=== PATIENT | female | born 1960 | race Caucasian/White ===

== ENCOUNTER 2018-03-29 10:52 | Inpatient (IN) ==
[~2018-03-29 10:52] MED LIST: Vancomycin 1,000 MG, Sodium Chloride IRRigation 1,000 ML IR ONE
--- NOTE | 2018-03-29 11:16 | History & Physical Report ---
Date of Encounter: 03/29/18 Time of Encounter: 11:10 24 Hour HP Update - Instructions Instructions: If the History and Physical is less than 30 days old and was completed prior to A.M. admission and or procedure and has NOT been updated on calendar day of procedure please complete this update prior to performing procedure. - Update Patient reports changes in Medical Condition: No Changes in examination, assessment, or condition: No Changes in Medication: No Preop tests/diagnostics Reviewed: Yes Surgery Remains Indicated: Yes Consent for Planned Operative Procedure(s) Verified: Yes - Pre-Operative Checklist Preoperative Checklist Indicated: Yes Prophylactic Antibiotic Ordered: Yes (Vancomycin due to risk of MRSA) Home Medications Include Beta Britney: Yes Beta Britney Taken Today (Day of Surgery): Yes Beta Britney Taken Yesterday (Day Prior to Surgery): Yes Is VTE Prophylaxis Indicated?: Yes
--- NOTE | 2018-03-29 11:42 | Anesthesia Evaluation PreOp ---
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 (received TPA at that time with partial motor function recovery)), Other (anxiety) Other Medical History: Diabetes Type II (not taking insulin because she has trouble with injections; on multiple medications) Anesthesia History: No Prior Anesthetic Complications Alcohol Use: none Drug use: none Medications and Allergies Aspirin Enteric Coated [Aspirin EC] 81 mg PO QAM 02/14/15 [History] Atorvastatin [Lipitor] 40 mg PO QAM 02/14/15 [History] Carvedilol [Coreg] 25 mg PO BID 02/14/15 [History] FLUoxetine HCl [Prozac] 10 mg PO QAM 02/14/15 [History] Lisinopril [Zestril] 20 mg PO BID 02/14/15 [History] Nitroglycerin [Nitrostat] 0.4 mg SL AD PRN 02/14/15 [History] Pioglitazone HCl [Actos] 30 mg PO QAM 02/14/15 [History] Amlodipine [Norvasc] 2.5 mg PO DAILY 30 Days tablet 02/15/15 [Rx] Aspirin 81 mg PO DAILY tab.chew 02/15/15 [Rx] Atorvastatin [Lipitor] 40 mg PO QAM tablet 02/15/15 [Rx] Isosorbide MONOnitrate (24 HR) [Imdur] 120 mg PO QAM #30 tab.er.24h 02/15/15 [Rx] Ranolazine [Ranexa] 1,000 mg PO BID #60 tab.er.12h 02/15/15 [Rx] Ticagrelor [Brilinta] 90 mg PO BID #60 tablet 02/15/15 [Rx] metFORMIN [Glucophage] 1,000 mg PO BID #0 02/15/15 [Rx] Cyclobenzaprine [Flexeril] 10 mg PO HS #15 tablet 07/14/17 [Rx] Ibuprofen [Motrin] 600 mg PO Q6HR PRN #30 tab 07/14/17 [Rx] Allergy/AdvReac Type Severity Reaction Status Date / Time Penicillins Allergy Anaphylaxis Verified 02/14/15 12:13 - Meds/Allergy Pre-op Review Medications Reviewed: Yes Allergies Reviewed: Yes Beta Blockers on Current Med List: Yes (coreg) If Beta Blockers taken, Date/Time (Last Dose taken): not taken recently Anesthesia Results - Labs Laboratory Tests 03/23/18 03/23/18 03/23/18 10:59 10:59 10:59 WBC 6.3 Hgb 15.6 H Hct 47.8 H Plt Count 206 PT 11.3 INR 1.0 APTT 31.5 Sodium 136 Potassium 3.9 Chloride 103 Carbon Dioxide 29 BUN 12 Creatinine 0.62 Est GFR ( Amer) > 60 Est GFR (Non-Af Amer) > 60 BUN/Creatinine Ratio 19 Glucose 223 H Calculated Osmolality 289 Calcium 9.4 - Imaging EKG: report reviewed, image reviewed (SR) Additional studies: 2014 Cardiac cath: Indications: Unstable Angina Impressions: There is severe two vessel coronary artery disease; diabetic coronary artery disease with diffusely diseased distal vessels The left ventricle is normal and has normal contractility EF 65% There is a previous stent in Proximal LAD with mild in-stent stenosis that did not require intervention Patient had PTCA in the OM. Recommendations: Optimal medical therapy of patient's disease. Aggressive risk factor modification. Advance antianginal therapy. 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
[2018-03-29] MEDS ORDERED: Ringers Solution, Lactated 1,000 ML IVC SCH (11:45)
[2018-03-29] MEDS ORDERED: Ondansetron 4 MG/2 ML VIAL ONE (12:03)
[2018-03-29] MEDS ORDERED: Lidocaine -MPF 4% 5 ML AMPUL ONE ×2 (12:03→15:03)
[2018-03-29] MEDS ORDERED: *HR* Rocuronium Bromide 50 MG/5 ML VIAL ONE (12:03)
[2018-03-29] MEDS ORDERED: Neostigmine Methylsulfate 3 MG/3 ML SYRINGE ONE (12:03)
[2018-03-29] MEDS ORDERED: Lidocaine -MPF 2% 2 ML VIAL ONE (12:03)
[2018-03-29] MEDS ORDERED: Dexamethasone 4 MG/ML VIAL ONE (12:03)
[2018-03-29] MEDS ORDERED: *HR* FentaNYL (PF) 100 MCG/2 ML VIAL ONE ×2 (12:03→12:05)
[2018-03-29] MEDS ORDERED: *HR* Propofol 200 MG/20 ML VIAL IVP ONE (12:04)
[2018-03-29] MEDS ORDERED: *HR* Midazolam HCl 2 MG/2 ML VIAL ONE ×3 (12:04→12:14)
[2018-03-29] MEDS ORDERED: Lidocaine -MPF 1% 5 ML AMPUL ONE (12:06)
[2018-03-29] MEDS ORDERED: Heparin 1,000 UNITS/500 mL 500 ML ONE (12:09)
--- NOTE | 2018-03-29 12:35 | Anesthesia Procedures ---
Date of Encounter: 03/29/18 Time of Encounter: 12:20 Procedures: Anesthesia - Arterial Line Consent obtained: written consent Time out performed: Yes Sedation: Versed (mg): 3 Sedation: Fentanyl (mcg): 100 Supplemental Oxygen via Nasal Cannula (L/min): 2 Local Anesthetic: Lidocaine 1% Amount of Anesthetic used (mls): 3 Size (Gauge): 20 Length (inches): 1 3/4 Technique Used: sterile prep, guide wire technique Post-Procedure: line taped into place, dry sterile dressing placed Patient tolerated procedure: well, no complications Complications: none Site: Radial R
[2018-03-29] MEDS ORDERED: Protamine Sulfate 50 MG/5 ML VIAL IVP ONE (12:37)
[2018-03-29] MEDS ORDERED: Bupivacaine-MPF 0.25% 10 ML VIAL ONE (12:38)
[2018-03-29] MEDS ORDERED: Heparin 1,000 UNITS/500 mL 1,500 ML ONE (12:38)
[2018-03-29] MEDS ORDERED: *HR* Remifentanil 2 MG VIAL IVP ONE (12:39)
[2018-03-29] MEDS ORDERED: *HR* Phenylephrine 10 MG/ML VIAL ONE (12:39)
[2018-03-29] MEDS ORDERED: *HR* PHENYLEPHRINE 1,000 MCG/10 ML SYRINGE IVP ONE (13:38)
[2018-03-29] MEDS ORDERED: *HR* Promethazine 25 MG/ML VIAL IVP PRN (13:54)
[2018-03-29] MEDS ORDERED: *HR* Labetalol 20 MG/4 ML SYRINGE IVP PRN ×2 (13:54→17:59)
[2018-03-29] MEDS ORDERED: *HR* Succinylcholine 200 MG/10 ML VIAL IVP ONE (15:03)
--- NOTE | 2018-03-29 16:45 | Operative Note ---
Date of procedure: 03/29/18 Pre-op diagnosis: 80-99% left internal carotid artery stenosis Post-op diagnosis: same Procedure: Left carotid endarterectomy with Hemashield patch angioplasty Complications: None Anesthesia: GETA Surgeon: Roger Quinteros Was there an dental chairside assistant present: No Estimated blood loss (cc): 50 Specimen: Left carotid plaque Condition: stable Disposition: PACU Procedure in Detail: Indications: The patient is a 57-year-old mwruyo-coty-hve female with a history of carotid stenosis, hypertension, hyperlipidemia, diabetes and coronary artery disease. The patient was found have an 80-99% left internal carotid artery stenosis by CT angiogram. The patient is a history of a transient ischemic attack. A left carotid endarterectomy was recommended to reduce her risk of cerebrovascular accidents. Procedure: The patient was identified in the preoperative area. The risks, benefits, and alternatives of the procedure were discussed and all questions were answered. The patient was then taken to the operating room and placed in supine position on the operating table. After the induction of general endotracheal anesthesia, the patient was cleaned and draped in normal sterile fashion. A longitudinal incision was made anterior to the left sternocleidomastoid muscle. Hemostasis was obtained via electrocautery. Through a process of blunt, sharp, and electrocautery dissection, the platysma was incised with electrocautery. The jugular vein was identified. The facial vein was dissected proximally. The vesel was then ligtated with 2-0 silk suture and divided. The jugular vein was then retracted to expose the carotid bifurcation. The patient received 2000 units of heparin intravenously at this time. Proximal dissection of the common and external carotid arteries were performed circumferentially. Dissection of the internal carotid was performed circumferentially. Vessels loops were passed around the internal and external carotid and an umbilical tape was passed from the common carotid artery. The patient received additional 3000 units of heparin intravenously. Additional anticoagulation was given during procedure to maintain adequate anticoagulation. After waiting adequate time for the heparin to circulate, the vessels were occluded and a longitudinal arteriotomy was made into the common carotid artery and extended into the internal carotid beyond the plaque. The plaque was long, ulcerated and heavily calcified. Vigorous pulsatile retrograde flow was noted from the internal carotid artery upon release of the vessel loop. Rapid pulsatile retrograde flow was noted from the internal carotid artery. This was consistent with significant retrograde perfusion. Given this finding, a shunt was not placed. A dental [place] was used to perform a standard endarterectomy. Proximal and distal endpoints were inspected an no elevated flaps were noted. A Hemashield patch was cut to fit the defect and sutured in place with running 6-0 Prolene. Prior to completing the closure, each vessel was flushed and then reoccluded. Heparinized saline was infused into the lumen. The patch was completed. Flow was restored in the external carotid artery, followed the common carotid artery, lastly the internal carotid artery was opened. A low resistance arterialized signal was present within the internal carotid artery beyond the patch. Thrombin and Gelfoam were used to aid in hemostasis. Meticulous hemostasis was obtained throughout the wound with electrocautery. Platelet rich and platelet poor plasma were infused into the wounds. The sternocleidomastoid was reapproximated with interrupted 3-0 Vicryl. Platelet rich and platelet poor plasma were infused into the wound. A TLS drain was brought through a separate stab incision and sutured in place with 0 silk suture. The platysma was reapproximated with running 3-0 Vicryl. Local anesthetic was infused in the skin. A 3-0 Monocryl was used to reapproximate the skin. A sterile dressing was applied. The patient was extubated, taken to the recovery room in stable condition.
[2018-03-29] MEDS: *HR* HYDROmorphone (PF) 1 MG/ML SYRINGE IVP PRN ×2 (16:52→17:21)
--- NOTE | 2018-03-29 17:50 | Anesthesia Evaluation Post Op ---
Date of Encounter: 03/29/18 Time of Encounter: 17:49 - Vital Signs Vital Signs: Last Vital Signs Temp 99.7 F H 03/29/18 17:24 Pulse 68 03/29/18 17:34 Resp 13 03/29/18 17:34 BP 101/51 03/29/18 17:34 Pulse Ox 97 03/29/18 17:34 - Lungs Lungs: Clear Ascult./Percussion - Airway Airway: Non-obstructed - Cardiovascular Regular Rate - Mental Status Mental Status: Alert & Oriented, Answers Appropriately - Pain Pain Scale: 2 - Nausea Vomiting Nausea Vomiting: Not Present - Hydration Hydration: NPO, Simpson catheter - Discharge PostOp Status: Transfer Patient to floor
[2018-03-29] MEDS ORDERED: *HR* OxyCODONE Immed Rel 5 MG TABLET PO PRN (17:59)
[2018-03-29] MEDS ORDERED: OXYCODONE Oral CONC 10 MG/0.5 ML ORAL.SYG SL PRN ×2 (17:59)
[2018-03-29] MEDS ORDERED: D5% in Water 1,000 ML IVC PRN (17:59)
[2018-03-29] MEDS ORDERED: *HR* Dextrose 50 % in Water (Syg) 50 ML SYRINGE IVP PRN (17:59)
[2018-03-29] MEDS ORDERED: Famotidine 20 MG TABLET PO PRN (17:59)
[2018-03-29] MEDS ORDERED: 0.9 % Sodium Chloride 1,000 ML IVC SCH (17:59)
[2018-03-29] MEDS ORDERED: Naloxone 0.4 MG/ML INJ IVP PRN (17:59)
[2018-03-29] MEDS ORDERED: Nitroglycerin 0.4 MG TAB.SUBL SL PRN (17:59)
[2018-03-29] MEDS ORDERED: *HR* HYDROcodone/Acet 5/325 mg TABLET PO PRN (17:59)
[2018-03-29] MEDS ORDERED: Acetaminophen 325 MG TABLET PO PRN (17:59)
[2018-03-29] MEDS ORDERED: Dextrose Gel 15 GM/37.5 ML TUBE PO PRN ×2 (17:59)
[2018-03-29] MEDS ORDERED: Ondansetron 4 MG/2 ML VIAL IVP PRN (17:59)
[2018-03-29] MEDS: *HR* Metoprolol 5 MG/5 ML VIAL IVP SCH ×2 (19:42→23:59)
[2018-03-29] MEDS: Pregabalin 50 MG CAPSULE PO SCH (20:57)
[2018-03-29] MEDS: Ranolazine 500 MG TAB.ER.12H PO SCH (20:57)
[2018-03-29] MEDS ORDERED: Insulin LISPRO 300 UNITS/3 ML VIAL SQ SCH (21:00)
[2018-03-29] MEDS ORDERED: Canagliflozin [Invokana] 300 MG PO SCH (21:00)
[2018-03-29] MEDS ORDERED: *HR* LORazepam 2 MG/ML VIAL IVP PRN (22:09)
[2018-03-29] MEDS ORDERED: Vancomycin 0 MG in D5% in Water 250 ML IVPB ONE (23:30)
[2018-03-30] MEDS ORDERED: *HR* Heparin 5,000 UNIT/ML VIAL SQ SCH ×2 (06:00)
[2018-03-30] MEDS: *HR* Metoprolol 5 MG/5 ML VIAL IVP SCH (06:14)
[2018-03-30 07:08] VITALS: BP 107/56
[2018-03-30] MEDS ORDERED: Insulin LISPRO 300 UNITS/3 ML VIAL SQ SCH (07:30)
--- NOTE | 2018-03-30 07:55 | Discharge Summary ---
Orders not resulted at time of discharge: Pending orders 03/29/18 16:27 Surgical Pathology [PTH] Routine Date of Encounter: 03/30/18 Time of Encounter: 07:45 - Discharge Diagnosis (1) Carotid stenosis, left Priority: Primary Status: Acute Comments: The patient is postoperative day #1 after left carotid artery. She is tolerating her diet well. Her incision is healing. She has no hematoma. She has no neurologic deficits. She will be discharged today. (2) Diabetes Status: Acute (3) Hypertension Status: Acute - Hospital Course Hospital course: Ms. Guadarrama is a 57 year old female - Time Spent with Patient Total time spent providing and/or coordinating discharge services: - Discharge Medications Prescriptions: HYDROcodone/Acet 5/325 mg [[place] 5-325 mg] 1 tab PO Q6HR PRN 3 Days #12 tablet PRN Reason: Postoperative pain Home Medications: Amlodipine Besylate 10 mg PO DAILY 03/29/18 [History] Atorvastatin Calcium [Lipitor] 80 mg PO DAILY 03/29/18 [History] Canagliflozin [Invokana] 300 mg PO HS 03/29/18 [History] Carvedilol [Coreg] 25 mg PO BID 03/29/18 [History] FLUoxetine HCl [Prozac] 20 mg PO DAILY 03/29/18 [History] Famotidine [Pepcid] 20 mg PO BID PRN 03/29/18 [History] Hydralazine HCl 50 mg PO BID 03/29/18 [History] Isosorbide MONOnitrate [Isosorbide Mononitrate ER] 120 mg PO DAILY 03/29/18 [History] Linagliptin [Tradjenta] 5 mg PO DAILY 03/29/18 [History] Lisinopril [Zestril] 20 mg PO DAILY 03/29/18 [History] Metformin HCl [Glucophage] 1,000 mg PO BID 03/29/18 [History] Nitroglycerin 0.4 mg SL Q5M PRN MDD [id number] CALL 911 03/29/18 [History] Omeprazole [PriLOSEC] 40 mg PO DAILY 03/29/18 [History] Pioglitazone HCl [Actos] 30 mg PO DAILY 03/29/18 [History] Pregabalin [Lyrica] 100 mg PO TID 03/29/18 [History] Ranolazine [Ranexa] 1,000 mg PO BID 03/29/18 [History] Ticagrelor [Brilinta] 90 mg PO BID 03/29/18 [History] cloNIDine HCl [CloNIDine HCl] 0.1 mg PO BID 03/29/18 [History] HYDROcodone/Acet 5/325 mg [[place] 5-325 mg] 1 tab PO Q6HR PRN 3 Days #12 tablet 03/30/18 [Rx] Allergies/Adverse Reactions: Allergy/AdvReac Type Severity Reaction Status Date / Time Penicillins Allergy Anaphylaxis Verified 03/29/18 12:50 Date of admission: 03/29/18 17:50 Primary care physician: Liv Martinez MD Exam Vital Signs, Last 4 Hours Temp Pulse Resp BP Pulse Ox 03/30/18 07:04 97.6 F 54 18 107/56 97 General: Present: Conversant HEENT: Present: Trachea midline, Pupils equal Neck: Present: Other (Incision clean, dry and intact without erythema or drainage. No hematoma. Expected ecchymosis.). Absent: Tracheal deviation Cardiac: Present: Reg Rate and Rhythm, Normal S1 and S2 Lungs: Present: Normal Breath Sounds Neuro: Present: Alert and responsive, No focal deficits noted Abdomen: Present: Soft Vascular: Present: Normal capillary refill Skin: Present: No rashes noted on visualized skin - Patient Status Disposition: Home, Self-Care Condition: Good Functional capacity at discharge: independent ambulation Overall status at discharge: patient is back to baseline - Discharge Instructions Follow Up With: Roger Quinteros MD [Partnered Physician] - 04/19/18 3:00 pm Liv Martinez MD [Primary Care Provider] - 04/04/18 11:00 am Additional Instructions: May remove bandage and shower 03/31/2018: Wash wound gently and pat to dry. No driving for 7 days. Call [phone] with questions or concerns. - Diet and Activity Activity: increase activity as tolerated Diet: advance to your usual diet
[2018-03-30] MEDS: Pregabalin 50 MG CAPSULE PO SCH (08:41)
[2018-03-30] MEDS: Ranolazine 500 MG TAB.ER.12H PO SCH (08:41)
[2018-03-30] MEDS ORDERED: Isosorbide MONOnitrate (24 HR) 60 MG TAB.ER.24H PO SCH (09:00)
[2018-03-30] MEDS ORDERED: *HR* Ticagrelor 90 MG TABLET PO SCH (09:00)
[2018-03-30] MEDS ORDERED: Lisinopril 20 MG TABLET PO SCH (09:00)
[2018-03-30] MEDS ORDERED: hydrALAZINE 25 MG TABLET PO SCH (09:00)
[2018-03-30] MEDS ORDERED: amLODIPine 5 MG TABLET PO SCH (09:00)
== END 2018-03-30 09:37 | disposition home or self-care (01) | DRG 39 ==
LOC: SAMDAY 10:52 → 2NNU 17:50
PROVIDERS: ADMIT Surgery; ATTEND Surgery

== ENCOUNTER 2019-12-17 06:12 | Inpatient (IN) ==
[~2019-12-17 06:12] MED LIST changes: +Dextrose 50 % in Water (Vial) 30 ML, Sodium Bicarbonate 20 MEQ, Lidocaine 1% 5 ML, Insu... TH ONE; +Dextrose 50 % in Water (Vial) 30 ML, Sodium Bicarbonate 20 MEQ, Potassium Chloride 15 M... TH ONE; +Heparin 15,000 UNIT in 0.9 % Sodium Chloride 500 ML IV ONE; +Insulin Human Regular 100 UNIT in 0.9 % Sodium Chloride 100 ML IV PRN; +Norepinephrine 4 MG in 0.9 % Sodium Chloride 250 ML IVC PRN; -Vancomycin 1,000 MG, Sodium Chloride IRRigation 1,000 ML IR ONE
[2019-12-17] MEDS ORDERED: Clindamycin 900 MG/50 ML 900 MG/50 ML IV.SOLN IVPB ONE (06:30)
[2019-12-17] MEDS ORDERED: Aspirin 81 MG TAB.CHEW PO ONE (06:34)
[2019-12-17] MEDS ORDERED: NiCARdipine 2.5 MG/10 ML Syringe IVPB ONE (06:37)
[2019-12-17] MEDS ORDERED: Chlorhexidine Rinse 15 ML MOUTHWASH MM SCH (06:45)
[2019-12-17] MEDS ORDERED: *HR* FentaNYL (PF) 1,000 MCG/20 ML VIAL ONE (06:45)
[2019-12-17] MEDS ORDERED: *HR* Midazolam HCl 5 MG/5 ML VIAL IVP ONE (06:45)
[2019-12-17] MEDS ORDERED: Ringers Solution, Lactated 1,000 ML IVC SCH (06:45)
[2019-12-17] MEDS ORDERED: *HR* Rocuronium Bromide 50 MG/5 ML VIAL ONE ×2 (06:46→12:53)
[2019-12-17] MEDS ORDERED: *HR* PHENYLEPHRINE 1,000 MCG/10 ML SYRINGE IVP ONE ×2 (06:46→14:09)
[2019-12-17] MEDS ORDERED: *HR* Etomidate 20 MG/10 ML AMPUL IVP ONE (06:47)
[2019-12-17] MEDS ORDERED: Famotidine 20 MG/2 ML VIAL ONE (06:47)
[2019-12-17] MEDS ORDERED: Calcium Gluconate 1,000 MG/10 ML VIAL ONE (06:49)
[2019-12-17] MEDS ORDERED: Tranexamic Acid 1,000 MG/10 ML VIAL ONE ×2 (06:49→12:04)
[2019-12-17] MEDS ORDERED: Protamine Sulfate 250 MG/25 ML VIAL IVP ONE (06:49)
[2019-12-17] MEDS ORDERED: Heparin 1,000 UNITS/500 mL IV.SOLN IR ONE (08:16)
[2019-12-17] MEDS ORDERED: Lidocaine 2% Syringe 100 MG/5 ML IVP ONE (08:16)
[2019-12-17] MEDS ORDERED: Mannitol 25% vial 12.5 GM/50 ML VIAL IVP ONE (08:16)
[2019-12-17] MEDS ORDERED: *HR* Phenylephrine 10 MG/ML VIAL IVC ONE (08:16)
[2019-12-17] MEDS ORDERED: *HR* Magnesium Sulfate 2 GM/50 ML PIGGYBACK IVPB ONE (08:16)
[2019-12-17] MEDS ORDERED: Tranexamic Acid 1,000 MG/10 ML VIAL IR ONE (08:16)
[2019-12-17] MEDS ORDERED: D5% in Water 250 ML IV BAG IV ONE (08:16)
[2019-12-17] MEDS ORDERED: Albumin Human 25% 25 GM/100 ML IV.SOLN IVPB ONE (08:16)
[2019-12-17] MEDS ORDERED: Vancomycin 1,250 MG/262.5 ML IV.SOLN IVPB ONE (10:48)
[2019-12-17 11:03] LABS: ABG Base Excess 1 mEq/L (-2 to 3); ABG Chloride 105 mEq/L (98-107); ABG Glucose 190 mg/dL (60-95); ABG HCO3 29 mEq/L (21-27); ABG Ionized Calcium 1.25 mmol/L (1.15-1.35); ABG Oxygen Saturation 100 % (95-98); ABG PCO2 58 mmHg (35-45); ABG PH 7.31 pH Units (7.32-7.45); ABG PO2 300 mmHg (85-104); ABG TCO2 31 mEq/L (20-26)
[2019-12-17 12:43] LABS: ABG Base Excess -2 mEq/L (-2 to 3); ABG Chloride 108 mEq/L (98-107); ABG Glucose 169 mg/dL (60-95); ABG HCO3 23 mEq/L (21-27); ABG Ionized Calcium 1.05 mmol/L (1.15-1.35); ABG Oxygen Saturation 100 % (95-98); ABG PCO2 41 mmHg (35-45); ABG PH 7.36 pH Units (7.32-7.45); ABG PO2 184 mmHg (85-104); ABG TCO2 24 mEq/L (20-26)
[2019-12-17 12:50] LABS: ABG Base Excess 3 mEq/L (-2 to 3); ABG Chloride 99 mEq/L (98-107); ABG Glucose 271 mg/dL (60-95); ABG HCO3 28 mEq/L (21-27); ABG Ionized Calcium 0.94 mmol/L (1.15-1.35); ABG PCO2 43 mmHg (35-45); ABG PH 7.42 pH Units (7.32-7.45); ABG PO2 > 630 mmHg (85-104); ABG TCO2 29 mEq/L (20-26)
[2019-12-17 13:13] LABS: ABG Base Excess 2 mEq/L (-2 to 3); ABG Chloride 102 mEq/L (98-107); ABG Glucose 194 mg/dL (60-95); ABG HCO3 28 mEq/L (21-27); ABG Ionized Calcium 1.05 mmol/L (1.15-1.35); ABG Oxygen Saturation 100 % (95-98); ABG PCO2 50 mmHg (35-45); ABG PH 7.35 pH Units (7.32-7.45); ABG PO2 565 mmHg (85-104); ABG TCO2 29 mEq/L (20-26)
[2019-12-17] MEDS ORDERED: Albumin Human 5% 25.0 GM/500 ML IV.SOLN ONE (13:46)
[2019-12-17 13:50] LABS: ABG Base Excess -2 mEq/L (-2 to 3); ABG Chloride 105 mEq/L (98-107); ABG Glucose 106 mg/dL (60-95); ABG HCO3 25 mEq/L (21-27); ABG Ionized Calcium 1.19 mmol/L (1.15-1.35); ABG Oxygen Saturation 98 % (95-98); ABG PCO2 47 mmHg (35-45); ABG PH 7.32 pH Units (7.32-7.45); ABG PO2 116 mmHg (85-104); ABG TCO2 26 mEq/L (20-26)
[2019-12-17] MEDS ORDERED: Insulin Regular, Human 100 UNIT/ML IV PRN (14:52)
[2019-12-17] MEDS ORDERED: Potassium Chloride 40 MEQ/200 ML BAG IVPB PRN (14:52)
[2019-12-17] MEDS ORDERED: *HR* Dextrose 50 % in Water (Vial) 50 ML VIAL IVP PRN (14:52)
[2019-12-17] MEDS ORDERED: *HR* Promethazine 25 MG/ML VIAL IVP PRN (14:52)
[2019-12-17] MEDS ORDERED: Acetaminophen 325 MG TABLET PO PRN (14:52)
[2019-12-17 15:15] LABS: ABG Base Excess 1 mEq/L (-2 to 3); ABG HCO3 26 mEq/L (21-27); ABG Oxygen Saturation 100 % (95-98); ABG PCO2 42 mmHg (35-45); ABG PO2 166 mmHg (85-104); ABG TCO2 28 mEq/L (20-26); Blood Gas Modality ASSIST CONTROL; Blood Gas VT 450 cc
[2019-12-17 15:16] LABS: Basophils % 0.4 %; Eosinophils # 0.1 K/mcL (0.0-0.6); Eosinophils % 0.8 %; Hematocrit 32.6 % (35.3-44.9); Hemoglobin 10.7 g/dL (11.5-15.4); Immature Granulocytes % 0.6 % (0-4); Lymphocytes # 2.4 K/mcL (0.6-4.6); Lymphocytes % 21.8 %; Mean Corpuscular HGB Conc 32.8 g/dL (31.6-35.5); Mean Corpuscular Hemoglobin 28.1 pg (28.0-33.3); Mean Corpuscular Volume 85.6 fL (83.0-100.0); Mean Platelet Volume 10.7 fL (9.4-12.4); Monocytes # 0.5 K/mcL (0.0-1.3); Monocytes % 4.9 %; Neutrophils # 7.9 K/mcL (1.6-8.9); Platelet Count 147 K/mcL (140-400); Red Blood Count 3.81 M/mcL (3.82-4.97); Red Cell Distribution Width 13.2 % (11.5-14.5); Segmented Neutrophils % 71.5 %
[2019-12-17 15:23] LABS: INR 1.3
[2019-12-17 15:25] LABS: Activated Partial Thrombo Time 30.7 Seconds (26.0-36.0)
[2019-12-17 15:28] LABS: Prothrombin Time 14.7 Seconds (9.4-12.1)
[2019-12-17] MEDS: niCARdipine 20 MG/200 ML MLS IVC SCH ×3 (15:30→22:01)
[2019-12-17 15:32] LABS: BUN/Creatinine Ratio 28 (6-26); Blood Urea Nitrogen 15 mg/dL (6-20); Calcium 8.4 mg/dL (8.6-10.3); Carbon Dioxide 27 mEq/L (23-29); Chloride 109 mEq/L (98-107); Glucose 97 mg/dL (70-105); Magnesium 2.3 mg/dL (1.6-2.6); Osmolality,Calculated 293 (280-300); Potassium 3.5 mEq/L (3.5-5.1); Sodium 141 mEq/L (136-145); eGFR For African Americans > 60 (> 60); eGFR For Non-African Americans > 60 (> 60)
[2019-12-17] MEDS: 0.9 % Sodium Chloride 1,000 ML IVC SCH (16:00)
[2019-12-17] MEDS: Insulin Human Regular 100 UNIT in 0.9 % Sodium Chloride 100 ML IVC SCH (16:32)
[2019-12-17] MEDS: Norepinephrine 4 MG/254 ML IV.SOLN IVC SCH (16:38)
[2019-12-17] MEDS: Clindamycin 900 MG/50 ML 900 MG/50 ML IV.SOLN IVPB SCH ×2 (16:41→23:58)
[2019-12-17] MEDS ORDERED: carvediloL 25 MG TABLET PO SCH (17:00)
[2019-12-17] MEDS: *HR* FentaNYL (PF) 100 MCG/2 ML VIAL IVP PRN ×3 (17:19→23:57)
[2019-12-17] MEDS: *HR* OxyCODONE/APAP 5/325 TABLET PO PRN ×2 (17:20→22:01)
[2019-12-17] MEDS: Albumin Human 5% 12.5 GM/250 ML IV.SOLN IVPB PRN (17:58)
[2019-12-17] MEDS: Chlorhexidine Rinse 15 ML MOUTHWASH MM SCH (20:13)
[2019-12-17 20:27] LABS: ABG Base Excess 3 mEq/L (-2 to 3); ABG HCO3 28 mEq/L (21-27); ABG Oxygen Saturation 98 % (95-98); ABG PCO2 47 mmHg (35-45); ABG PH 7.39 pH Units (7.32-7.45); ABG PO2 113 mmHg (85-104); ABG TCO2 30 mEq/L (20-26); Blood Gas Modality CPAP/PS; Blood Gas Pressure Support 10 cm H2O
[2019-12-17] MEDS ORDERED: Ranolazine 500 MG TAB.ER.12H PO SCH (21:00)
[2019-12-17] MEDS ORDERED: lisinopriL 20 MG TABLET PO SCH (21:00)
[2019-12-17 21:32] LABS: ABG Base Excess 2 mEq/L (-2 to 3); ABG HCO3 28 mEq/L (21-27); ABG Oxygen Saturation 92 % (95-98); ABG PCO2 46 mmHg (35-45); ABG PH 7.39 pH Units (7.32-7.45); ABG PO2 66 mmHg (85-104); ABG TCO2 29 mEq/L (20-26)
[2019-12-17] MEDS: Pregabalin 50 MG CAPSULE PO SCH (22:01)
[2019-12-18] MEDS: Albumin Human 5% 12.5 GM/250 ML IV.SOLN IVPB PRN ×3 (00:01→00:22)
[2019-12-18] MEDS ORDERED: Amiodarone Premix 150 MG/100 ML BAG IVPB ONE ×2 (00:46→00:49)
[2019-12-18] MEDS ORDERED: Albumin Human 5% 12.5 GM/250 ML IV.SOLN IVPB ONE ×2 (00:48→01:08)
[2019-12-18] MEDS ORDERED: Albumin Human 5% 12.5 GM/250 ML IV.SOLN ONE (00:50)
[2019-12-18] MEDS: niCARdipine 20 MG/200 ML MLS IVC SCH ×6 (00:57→20:22)
[2019-12-18] MEDS ORDERED: Amiodarone Premix 360 MG/200 ML BAG IVC ONE (01:00)
[2019-12-18] MEDS ORDERED: Calcium Gluconate 1gm/50mL 1 GM/50 ML BAG IVPB ONE (01:07)
[2019-12-18] MEDS ORDERED: Calcium Gluconate 1,000 MG/10 ML VIAL ONE (01:08)
[2019-12-18] MEDS: Ondansetron 4 MG/2 ML VIAL IVP PRN ×2 (01:40→15:34)
[2019-12-18] MEDS ORDERED: *HR* FentaNYL (PF) 100 MCG/2 ML VIAL IVP PRN (01:45)
[2019-12-18] MEDS ORDERED: Furosemide 20 MG/2 ML VIAL IVP ONE ×2 (01:52→01:54)
[2019-12-18] MEDS: Amiodarone Premix 360 MG/200 ML BAG IVC SCH ×2 (02:08→07:30)
[2019-12-18] MEDS: Norepinephrine 4 MG/254 ML IV.SOLN IVC SCH (03:32)
[2019-12-18] MEDS: 0.9 % Sodium Chloride 1,000 ML IVC SCH ×3 (03:34→22:04)
[2019-12-18 03:46] LABS: ABG Base Excess 2 mEq/L (-2 to 3); ABG HCO3 28 mEq/L (21-27); ABG Oxygen Saturation 89 % (95-98); ABG PCO2 49 mmHg (35-45); ABG PH 7.37 pH Units (7.32-7.45); ABG PO2 60 mmHg (85-104); ABG TCO2 30 mEq/L (20-26)
[2019-12-18 04:29] LABS: Basophils % 0.4 %; Eosinophils % 0.1 %; Hematocrit 28.9 % (35.3-44.9); Hemoglobin 9.3 g/dL (11.5-15.4); Immature Granulocytes % 0.4 % (0-4); Lymphocytes # 0.8 K/mcL (0.6-4.6); Lymphocytes % 10.2 %; Mean Corpuscular HGB Conc 32.2 g/dL (31.6-35.5); Mean Corpuscular Hemoglobin 27.8 pg (28.0-33.3); Mean Corpuscular Volume 86.3 fL (83.0-100.0); Mean Platelet Volume 10.6 fL (9.4-12.4); Monocytes # 0.6 K/mcL (0.0-1.3); Monocytes % 7.7 %; Neutrophils # 6.4 K/mcL (1.6-8.9); Platelet Count 116 K/mcL (140-400); Red Blood Count 3.35 M/mcL (3.82-4.97); Red Cell Distribution Width 13.3 % (11.5-14.5); Segmented Neutrophils % 81.2 %; White Blood Count 7.9 K/mcL (4.3-11.1)
[2019-12-18 04:48] LABS: BUN/Creatinine Ratio 27 (6-26); Blood Urea Nitrogen 17 mg/dL (6-20); Calcium 8.4 mg/dL (8.6-10.3); Carbon Dioxide 26 mEq/L (23-29); Chloride 106 mEq/L (98-107); Glucose 160 mg/dL (70-105); Osmolality,Calculated 293 (280-300); Potassium 3.8 mEq/L (3.5-5.1); Sodium 139 mEq/L (136-145); eGFR For African Americans > 60 (> 60); eGFR For Non-African Americans > 60 (> 60)
[2019-12-18] MEDS: *HR* OxyCODONE/APAP 5/325 TABLET PO PRN ×2 (05:43→12:30)
[2019-12-18] MEDS: Aspirin Enteric Coated 81 MG Tablet PO SCH (08:51)
[2019-12-18] MEDS: Chlorhexidine Rinse 15 ML MOUTHWASH MM SCH ×2 (08:51→20:10)
[2019-12-18] MEDS: Pregabalin 50 MG CAPSULE PO SCH ×3 (08:51→20:10)
[2019-12-18] MEDS: FLUoxetine 20 MG CAPSULE PO SCH (08:51)
[2019-12-18] MEDS ORDERED: amLODIPine 5 MG TABLET PO SCH (09:00)
[2019-12-18] MEDS ORDERED: *HR* Amiodarone 200 MG TABLET PO SCH (09:00)
[2019-12-18] MEDS ORDERED: Pantoprazole 40 MG VIAL IVP SCH (09:00)
[2019-12-18] MEDS: Insulin Human Regular 100 UNIT in 0.9 % Sodium Chloride 100 ML IVC SCH (16:36)
[2019-12-19] MEDS: niCARdipine 20 MG/200 ML MLS IVC SCH ×5 (02:09→20:35)
[2019-12-19 05:08] LABS: Basophils % 0.2 %; Hematocrit 30.6 % (35.3-44.9); Hemoglobin 9.7 g/dL (11.5-15.4); Immature Granulocytes % 0.5 % (0-4); Lymphocytes # 1.1 K/mcL (0.6-4.6); Lymphocytes % 10.9 %; Mean Corpuscular HGB Conc 31.7 g/dL (31.6-35.5); Mean Corpuscular Volume 88.4 fL (83.0-100.0); Mean Platelet Volume 10.9 fL (9.4-12.4); Monocytes # 0.7 K/mcL (0.0-1.3); Monocytes % 7.3 %; Neutrophils # 8.2 K/mcL (1.6-8.9); Platelet Count 113 K/mcL (140-400); Red Blood Count 3.46 M/mcL (3.82-4.97); Red Cell Distribution Width 13.4 % (11.5-14.5); Segmented Neutrophils % 81.1 %; White Blood Count 10.2 K/mcL (4.3-11.1)
[2019-12-19 05:29] LABS: BUN/Creatinine Ratio 44 (6-26); Blood Urea Nitrogen 27 mg/dL (6-20); Calcium 8.8 mg/dL (8.6-10.3); Carbon Dioxide 21 mEq/L (23-29); Chloride 105 mEq/L (98-107); Glucose 190 mg/dL (70-105); Osmolality,Calculated 296 (280-300); Potassium 3.8 mEq/L (3.5-5.1); Sodium 138 mEq/L (136-145); eGFR For African Americans > 60 (> 60); eGFR For Non-African Americans > 60 (> 60)
[2019-12-19] MEDS: *HR* OxyCODONE/APAP 5/325 TABLET PO PRN ×2 (07:40→15:39)
[2019-12-19] MEDS: Pregabalin 50 MG CAPSULE PO SCH ×3 (07:41→20:25)
[2019-12-19] MEDS: FLUoxetine 20 MG CAPSULE PO SCH (07:41)
[2019-12-19] MEDS: Aspirin Enteric Coated 81 MG Tablet PO SCH (07:41)
[2019-12-19] MEDS: *HR* Amiodarone 200 MG TABLET PO SCH (07:42)
[2019-12-19] MEDS: Chlorhexidine Rinse 15 ML MOUTHWASH MM SCH ×2 (07:42→20:36)
[2019-12-19] MEDS: *HR* Ticagrelor 90 MG TABLET PO SCH ×2 (10:10→20:25)
[2019-12-19] MEDS ORDERED: Dextrose Gel 15 GM/37.5 ML TUBE PO PRN ×2 (10:32)
[2019-12-19] MEDS ORDERED: D5% in Water 1,000 ML IVC PRN (10:32)
[2019-12-19] MEDS ORDERED: *HR* Dextrose 50 % in Water (Vial) 50 ML VIAL IVP PRN (10:32)
[2019-12-19] MEDS: Insulin LISPRO 300 UNITS/3 ML VIAL SQ SCH ×2 (11:43→15:40)
[2019-12-19] MEDS: Norepinephrine 4 MG/254 ML IV.SOLN IVC SCH (16:41)
[2019-12-19] MEDS: Insulin Human Regular 100 UNIT in 0.9 % Sodium Chloride 100 ML IVC SCH (16:41)
[2019-12-19] MEDS ORDERED: Insulin LISPRO 300 UNITS/3 ML VIAL SQ SCH (21:00)
[2019-12-20] MEDS: niCARdipine 20 MG/200 ML MLS IVC SCH ×2 (00:16→06:43)
[2019-12-20] MEDS: *HR* OxyCODONE/APAP 5/325 TABLET PO PRN ×3 (03:27→16:42)
[2019-12-20 04:33] LABS: Basophils % 0.2 %; Eosinophils % 0.4 %; Hemoglobin 9.6 g/dL (11.5-15.4); Immature Granulocytes % 0.4 % (0-4); Lymphocytes # 1.2 K/mcL (0.6-4.6); Lymphocytes % 13.4 %; Mean Corpuscular HGB Conc 33.1 g/dL (31.6-35.5); Mean Corpuscular Hemoglobin 28.7 pg (28.0-33.3); Mean Corpuscular Volume 86.6 fL (83.0-100.0); Mean Platelet Volume 11.2 fL (9.4-12.4); Monocytes # 0.9 K/mcL (0.0-1.3); Monocytes % 9.9 %; Neutrophils # 6.7 K/mcL (1.6-8.9); Platelet Count 124 K/mcL (140-400); Red Blood Count 3.35 M/mcL (3.82-4.97); Red Cell Distribution Width 13.2 % (11.5-14.5); Segmented Neutrophils % 75.7 %; White Blood Count 8.9 K/mcL (4.3-11.1)
[2019-12-20 05:02] LABS: BUN/Creatinine Ratio 49 (6-26); Blood Urea Nitrogen 24 mg/dL (6-20); Calcium 8.4 mg/dL (8.6-10.3); Carbon Dioxide 24 mEq/L (23-29); Chloride 102 mEq/L (98-107); Glucose 200 mg/dL (70-105); Osmolality,Calculated 290 (280-300); Sodium 135 mEq/L (136-145); eGFR For African Americans > 60 (> 60); eGFR For Non-African Americans > 60 (> 60)
[2019-12-20] MEDS: Insulin LISPRO 300 UNITS/3 ML VIAL SQ SCH ×4 (09:53→21:00)
[2019-12-20] MEDS: FLUoxetine 20 MG CAPSULE PO SCH (09:54)
[2019-12-20] MEDS: Chlorhexidine Rinse 15 ML MOUTHWASH MM SCH ×2 (09:54→19:55)
[2019-12-20] MEDS: Pregabalin 50 MG CAPSULE PO SCH ×3 (09:54→19:55)
[2019-12-20] MEDS: Aspirin Enteric Coated 81 MG Tablet PO SCH (09:55)
[2019-12-20] MEDS: *HR* Ticagrelor 90 MG TABLET PO SCH ×2 (09:55→19:55)
[2019-12-20] MEDS: *HR* Amiodarone 200 MG TABLET PO SCH (09:55)
[2019-12-20] MEDS ORDERED: *HR* Dextrose 50 % in Water (Vial) 50 ML VIAL IVP PRN (10:58)
[2019-12-20] MEDS ORDERED: Acetaminophen 325 MG TABLET PO PRN (10:58)
[2019-12-20] MEDS ORDERED: *HR* Promethazine 25 MG/ML VIAL IVP PRN (10:58)
[2019-12-20] MEDS ORDERED: Ondansetron 4 MG/2 ML VIAL IVP PRN (10:58)
[2019-12-20] MEDS ORDERED: D5% in Water 1,000 ML IVC PRN (10:58)
[2019-12-20] MEDS ORDERED: Dextrose Gel 15 GM/37.5 ML TUBE PO PRN ×2 (10:58)
[2019-12-20] MEDS: *HR* Heparin 5,000 UNIT/ML VIAL SQ SCH (16:35)
[2019-12-20] MEDS ORDERED: *HR* Amiodarone 200 MG TABLET PO STA (18:58)
[2019-12-21 03:42] LABS: Basophils % 0.6 %; Eosinophils # 0.1 K/mcL (0.0-0.6); Eosinophils % 1.2 %; Hematocrit 29.5 % (35.3-44.9); Hemoglobin 9.8 g/dL (11.5-15.4); Immature Granulocytes % 0.3 % (0-4); Lymphocytes # 1.6 K/mcL (0.6-4.6); Lymphocytes % 23.2 %; Mean Corpuscular HGB Conc 33.2 g/dL (31.6-35.5); Mean Corpuscular Hemoglobin 28.1 pg (28.0-33.3); Mean Corpuscular Volume 84.5 fL (83.0-100.0); Mean Platelet Volume 11.4 fL (9.4-12.4); Monocytes # 0.6 K/mcL (0.0-1.3); Monocytes % 8.3 %; Neutrophils # 4.6 K/mcL (1.6-8.9); Platelet Count 148 K/mcL (140-400); Red Blood Count 3.49 M/mcL (3.82-4.97); Red Cell Distribution Width 13.2 % (11.5-14.5); Segmented Neutrophils % 66.4 %; White Blood Count 6.9 K/mcL (4.3-11.1)
[2019-12-21 03:44] LABS: BUN/Creatinine Ratio 47 (6-26); Blood Urea Nitrogen 25 mg/dL (6-20); Calcium 8.5 mg/dL (8.6-10.3); Carbon Dioxide 23 mEq/L (23-29); Chloride 103 mEq/L (98-107); Glucose 151 mg/dL (70-105); Osmolality,Calculated 285 (280-300); Sodium 134 mEq/L (136-145); eGFR For African Americans > 60 (> 60); eGFR For Non-African Americans > 60 (> 60)
[2019-12-21] MEDS: *HR* Heparin 5,000 UNIT/ML VIAL SQ SCH ×2 (06:15→16:49)
[2019-12-21] MEDS: *HR* OxyCODONE/APAP 5/325 TABLET PO PRN ×3 (07:18→21:27)
[2019-12-21] MEDS: FLUoxetine 20 MG CAPSULE PO SCH (07:19)
[2019-12-21] MEDS: Aspirin Enteric Coated 81 MG Tablet PO SCH (07:19)
[2019-12-21] MEDS: *HR* Ticagrelor 90 MG TABLET PO SCH ×2 (07:19→21:28)
[2019-12-21] MEDS: Pregabalin 50 MG CAPSULE PO SCH ×3 (07:19→21:28)
[2019-12-21] MEDS: Chlorhexidine Rinse 15 ML MOUTHWASH MM SCH ×2 (07:20→21:27)
[2019-12-21] MEDS: Insulin LISPRO 300 UNITS/3 ML VIAL SQ SCH ×4 (07:31→21:29)
[2019-12-21] MEDS ORDERED: *HR* Amiodarone 200 MG TABLET PO SCH (09:00)
[2019-12-21] MEDS: *HR* Amiodarone 200 MG TABLET PO SCH (21:29)
[2019-12-22 02:10] LABS: Basophils % 0.6 %; Eosinophils # 0.1 K/mcL (0.0-0.6); Eosinophils % 1.5 %; Hematocrit 25.4 % (35.3-44.9); Hemoglobin 8.6 g/dL (11.5-15.4); Immature Granulocytes % 0.4 % (0-4); Lymphocytes # 1.4 K/mcL (0.6-4.6); Lymphocytes % 28.6 %; Mean Corpuscular HGB Conc 33.9 g/dL (31.6-35.5); Mean Corpuscular Hemoglobin 28.8 pg (28.0-33.3); Mean Corpuscular Volume 84.9 fL (83.0-100.0); Monocytes # 0.5 K/mcL (0.0-1.3); Monocytes % 11.1 %; Neutrophils # 2.8 K/mcL (1.6-8.9); Platelet Count 163 K/mcL (140-400); Red Blood Count 2.99 M/mcL (3.82-4.97); Red Cell Distribution Width 13.2 % (11.5-14.5); Segmented Neutrophils % 57.8 %; White Blood Count 4.8 K/mcL (4.3-11.1)
[2019-12-22 02:29] LABS: BUN/Creatinine Ratio 35 (6-26); Blood Urea Nitrogen 19 mg/dL (6-20); Calcium 8.1 mg/dL (8.6-10.3); Carbon Dioxide 24 mEq/L (23-29); Chloride 101 mEq/L (98-107); Glucose 187 mg/dL (70-105); Osmolality,Calculated 287 (280-300); Potassium 3.2 mEq/L (3.5-5.1); Sodium 135 mEq/L (136-145); eGFR For African Americans > 60 (> 60); eGFR For Non-African Americans > 60 (> 60)
[2019-12-22] MEDS: *HR* OxyCODONE/APAP 5/325 TABLET PO PRN ×4 (05:44→21:01)
[2019-12-22] MEDS: *HR* Heparin 5,000 UNIT/ML VIAL SQ SCH ×2 (05:46→16:47)
[2019-12-22] MEDS: Pregabalin 50 MG CAPSULE PO SCH ×3 (08:40→21:02)
[2019-12-22] MEDS: *HR* Amiodarone 200 MG TABLET PO SCH ×2 (08:41→21:01)
[2019-12-22] MEDS: FLUoxetine 20 MG CAPSULE PO SCH (08:41)
[2019-12-22] MEDS: Aspirin Enteric Coated 81 MG Tablet PO SCH (08:41)
[2019-12-22] MEDS: *HR* Ticagrelor 90 MG TABLET PO SCH ×2 (08:41→21:01)
[2019-12-22] MEDS: Chlorhexidine Rinse 15 ML MOUTHWASH MM SCH ×2 (08:42→21:00)
[2019-12-22] MEDS: Insulin LISPRO 300 UNITS/3 ML VIAL SQ SCH ×4 (08:42→21:06)
[2019-12-23] MEDS: *HR* OxyCODONE/APAP 5/325 TABLET PO PRN ×4 (03:47→20:28)
[2019-12-23] MEDS: *HR* Heparin 5,000 UNIT/ML VIAL SQ SCH ×2 (06:09→17:02)
[2019-12-23] MEDS: *HR* Amiodarone 200 MG TABLET PO SCH ×2 (07:40→20:28)
[2019-12-23] MEDS: Aspirin Enteric Coated 81 MG Tablet PO SCH (07:40)
[2019-12-23] MEDS: Chlorhexidine Rinse 15 ML MOUTHWASH MM SCH ×2 (07:41→20:27)
[2019-12-23] MEDS: *HR* Ticagrelor 90 MG TABLET PO SCH ×2 (07:41→20:28)
[2019-12-23] MEDS: Pregabalin 50 MG CAPSULE PO SCH ×3 (07:42→20:28)
[2019-12-23] MEDS: Insulin LISPRO 300 UNITS/3 ML VIAL SQ SCH ×4 (07:42→23:51)
[2019-12-23] MEDS: FLUoxetine 20 MG CAPSULE PO SCH (09:44)
[2019-12-23 10:03] LABS: Hematocrit 27.8 % (35.3-44.9); Mean Corpuscular HGB Conc 32.4 g/dL (31.6-35.5); Mean Corpuscular Hemoglobin 28.8 pg (28.0-33.3); Mean Corpuscular Volume 89.1 fL (83.0-100.0); Mean Platelet Volume 10.9 fL (9.4-12.4); Platelet Count 191 K/mcL (140-400); Red Blood Count 3.12 M/mcL (3.82-4.97); Red Cell Distribution Width 13.4 % (11.5-14.5); White Blood Count 5.8 K/mcL (4.3-11.1)
[2019-12-23 10:24] LABS: BUN/Creatinine Ratio 23 (6-26); Blood Urea Nitrogen 15 mg/dL (6-20); Calcium 8.7 mg/dL (8.6-10.3); Carbon Dioxide 26 mEq/L (23-29); Chloride 104 mEq/L (98-107); Glucose 151 mg/dL (70-105); Osmolality,Calculated 288 (280-300); Potassium 4.4 mEq/L (3.5-5.1); Sodium 137 mEq/L (136-145); eGFR For African Americans > 60 (> 60); eGFR For Non-African Americans > 60 (> 60)
[2019-12-24] MEDS: *HR* OxyCODONE/APAP 5/325 TABLET PO PRN ×5 (05:35→20:01)
[2019-12-24] MEDS: *HR* Heparin 5,000 UNIT/ML VIAL SQ SCH ×2 (05:35→17:29)
[2019-12-24] MEDS: *HR* Ticagrelor 90 MG TABLET PO SCH ×2 (07:29→20:01)
[2019-12-24] MEDS: *HR* Amiodarone 200 MG TABLET PO SCH ×2 (07:29→20:00)
[2019-12-24] MEDS: Aspirin Enteric Coated 81 MG Tablet PO SCH (07:29)
[2019-12-24] MEDS: Chlorhexidine Rinse 15 ML MOUTHWASH MM SCH ×2 (07:29→20:01)
[2019-12-24] MEDS: FLUoxetine 20 MG CAPSULE PO SCH (07:29)
[2019-12-24] MEDS: Pregabalin 50 MG CAPSULE PO SCH ×3 (07:29→20:01)
[2019-12-24] MEDS: Insulin LISPRO 300 UNITS/3 ML VIAL SQ SCH ×4 (07:30→21:52)
[2019-12-25] MEDS: *HR* OxyCODONE/APAP 5/325 TABLET PO PRN ×4 (03:24→19:55)
[2019-12-25] MEDS: Aspirin Enteric Coated 81 MG Tablet PO SCH (07:24)
[2019-12-25] MEDS: *HR* Ticagrelor 90 MG TABLET PO SCH ×2 (07:24→19:54)
[2019-12-25] MEDS: Pregabalin 50 MG CAPSULE PO SCH ×3 (07:24→19:55)
[2019-12-25] MEDS: *HR* Amiodarone 200 MG TABLET PO SCH ×2 (07:24→19:54)
[2019-12-25] MEDS: Chlorhexidine Rinse 15 ML MOUTHWASH MM SCH ×2 (07:24→19:55)
[2019-12-25] MEDS: FLUoxetine 20 MG CAPSULE PO SCH (07:24)
[2019-12-25] MEDS: Insulin LISPRO 300 UNITS/3 ML VIAL SQ SCH ×4 (07:28→19:57)
[2019-12-26] MEDS: *HR* OxyCODONE/APAP 5/325 TABLET PO PRN ×2 (02:59→07:54)
[2019-12-26] MEDS: *HR* Amiodarone 200 MG TABLET PO SCH (07:54)
[2019-12-26] MEDS: Chlorhexidine Rinse 15 ML MOUTHWASH MM SCH (07:54)
[2019-12-26] MEDS: Insulin LISPRO 300 UNITS/3 ML VIAL SQ SCH (07:54)
[2019-12-26] MEDS: Aspirin Enteric Coated 81 MG Tablet PO SCH (07:54)
[2019-12-26] MEDS: Pregabalin 50 MG CAPSULE PO SCH (07:55)
[2019-12-26] MEDS: FLUoxetine 20 MG CAPSULE PO SCH (07:55)
[2019-12-26] MEDS: *HR* Ticagrelor 90 MG TABLET PO SCH (07:56)
[2019-12-26 10:41] VITALS: BP 122/66
== END 2019-12-26 11:39 | disposition home or self-care (01) | DRG 236 ==
LOC: SAMDAY 06:12 → ICNU 13:11 → 2NNU 12-20 14:05
PROVIDERS: ADMIT Thoracic Surgery (Cardiothoracic Vascular Surgery); ATTEND Thoracic Surgery (Cardiothoracic Vascular Surgery)

== ENCOUNTER 2020-02-01 08:52 | Inpatient (IN) ==
[~2020-02-01 08:52] MED LIST changes: +Acetaminophen IV 1,000 MG/100 ML INFUS..BTL IVPB ONE; -Dextrose 50 % in Water (Vial) 30 ML, Sodium Bicarbonate 20 MEQ, Lidocaine 1% 5 ML, Insu... TH ONE; -Dextrose 50 % in Water (Vial) 30 ML, Sodium Bicarbonate 20 MEQ, Potassium Chloride 15 M... TH ONE; +Famotidine 20 MG/2 ML VIAL IVP ONE; -Heparin 15,000 UNIT in 0.9 % Sodium Chloride 500 ML IV ONE; -Insulin Human Regular 100 UNIT in 0.9 % Sodium Chloride 100 ML IV PRN; -Norepinephrine 4 MG in 0.9 % Sodium Chloride 250 ML IVC PRN; +Pregabalin 75 MG CAPSULE PO ONE; +Ringers Solution, Lactated 1,000 ML IVC SCH; +Vancomycin 1,000 MG, Sodium Chloride IRRigation 1,000 ML IR ONE
[2020-02-01] MEDS ORDERED: Clindamycin 900 MG/50 ML 900 MG/50 ML IV.SOLN IVPB ONE ×2 (09:15→17:30)
[2020-02-01] MEDS ORDERED: Vancomycin 1,250 MG/262.5 ML IV.SOLN IVPB ONE ×2 (09:15→22:00)
[2020-02-01] MEDS ORDERED: *HR* Rocuronium Bromide 50 MG/5 ML VIAL ONE (09:35)
[2020-02-01] MEDS ORDERED: *HR* Propofol 200 MG/20 ML VIAL IVP ONE (09:35)
[2020-02-01] MEDS ORDERED: Dexamethasone 4 MG/ML VIAL ONE (09:35)
[2020-02-01] MEDS ORDERED: Ondansetron 4 MG/2 ML VIAL ONE (09:35)
[2020-02-01] MEDS ORDERED: Lidocaine -MPF 2% 2 ML VIAL ONE (09:35)
[2020-02-01] MEDS ORDERED: Lidocaine -MPF 4% 5 ML AMPUL ONE (09:35)
[2020-02-01] MEDS ORDERED: *HR* FentaNYL (PF) 100 MCG/2 ML VIAL ONE (09:35)
[2020-02-01] MEDS ORDERED: Heparin 1,000 UNITS/500 mL 500 ML ONE ×2 (09:40→10:58)
[2020-02-01] MEDS ORDERED: *HR* Heparin 5,000 UNIT/ML VIAL ONE (09:41)
[2020-02-01] MEDS ORDERED: *HR* PHENYLEPHRINE 1,000 MCG/10 ML SYRINGE IVP ONE (09:42)
[2020-02-01] MEDS ORDERED: *HR* Metoprolol 5 MG/5 ML VIAL IVP PRN (10:05)
[2020-02-01] MEDS ORDERED: Ondansetron 4 MG/2 ML VIAL IVP PRN (10:05)
[2020-02-01] MEDS ORDERED: *HR* FentaNYL (PF) 100 MCG/2 ML VIAL IVP PRN (10:05)
[2020-02-01] MEDS ORDERED: *HR* Midazolam HCl 2 MG/2 ML VIAL ONE (10:27)
[2020-02-01] MEDS ORDERED: *HR* Phenylephrine 10 MG/ML VIAL ONE (11:03)
[2020-02-01] MEDS ORDERED: Neostigmine Methylsulfate 3 MG/3 ML SYRINGE ONE (13:58)
[2020-02-01] MEDS: *HR* HYDROmorphone PF 0.5 MG/0.5 ML SYRINGE IVP PRN ×3 (14:43→15:07)
[2020-02-01] MEDS ORDERED: Acetaminophen 325 MG TABLET PO PRN ×2 (15:35)
[2020-02-01] MEDS ORDERED: *HR* HYDROcodone/Acet 5/325 mg TABLET PO PRN (15:35)
[2020-02-01] MEDS ORDERED: Nitroglycerin 0.4 MG TAB.SUBL SL PRN (15:35)
[2020-02-01] MEDS ORDERED: 0.9 % Sodium Chloride 1,000 ML IVC SCH (15:35)
[2020-02-01] MEDS ORDERED: *HR* Labetalol 20 MG/4 ML SYRINGE IVP PRN (15:35)
[2020-02-01] MEDS ORDERED: Naloxone 0.4 MG/ML INJ IVP PRN (15:35)
[2020-02-01] MEDS ORDERED: *HR* OxyCODONE Immed Rel 5 MG TABLET PO PRN ×2 (15:35)
[2020-02-01] MEDS: *HR* Metoprolol 5 MG/5 ML VIAL IVP SCH ×3 (16:40→22:50)
[2020-02-01] MEDS ORDERED: CeFAZolin 2 GM/120 ML BAG IVPB SCH (17:30)
[2020-02-01] MEDS: Pregabalin 50 MG CAPSULE PO SCH (20:17)
[2020-02-01] MEDS: Ranolazine 500 MG TAB.ER.12H PO SCH (20:17)
[2020-02-01] MEDS: *HR* HYDROcodone/Acet 5/325 mg TABLET PO PRN (20:20)
[2020-02-01] MEDS ORDERED: (Canagliflozin [Invokana] 300 MG) PO SCH (21:00)
[2020-02-02 04:41] LABS: Basophils % 0.4 %; Eosinophils % 0.1 %; Hematocrit 35.2 % (35.3-44.9); Hemoglobin 10.6 g/dL (11.5-15.4); Immature Granulocytes % 0.4 % (0-4); Lymphocytes % 13.9 %; Mean Corpuscular HGB Conc 30.1 g/dL (31.6-35.5); Mean Corpuscular Hemoglobin 26.1 pg (28.0-33.3); Mean Corpuscular Volume 86.7 fL (83.0-100.0); Mean Platelet Volume 9.4 fL (9.4-12.4); Monocytes # 0.5 K/mcL (0.0-1.3); Monocytes % 6.3 %; Neutrophils # 5.9 K/mcL (1.6-8.9); Platelet Count 222 K/mcL (140-400); Red Blood Count 4.06 M/mcL (3.82-4.97); Red Cell Distribution Width 14.1 % (11.5-14.5); Segmented Neutrophils % 78.9 %; White Blood Count 7.4 K/mcL (4.3-11.1)
[2020-02-02 05:00] LABS: BUN/Creatinine Ratio 26 (6-26); Blood Urea Nitrogen 15 mg/dL (6-20); Calcium 8.4 mg/dL (8.6-10.3); Carbon Dioxide 24 mEq/L (23-29); Chloride 104 mEq/L (98-107); Glucose 187 mg/dL (70-105); Osmolality,Calculated 288 (280-300); Potassium 4.3 mEq/L (3.5-5.1); Sodium 136 mEq/L (136-145); eGFR For African Americans > 60 (> 60); eGFR For Non-African Americans > 60 (> 60)
[2020-02-02] MEDS: *HR* Metoprolol 5 MG/5 ML VIAL IVP SCH (05:14)
[2020-02-02] MEDS ORDERED: *HR* Heparin 5,000 UNIT/ML VIAL SQ SCH ×2 (06:00)
[2020-02-02] MEDS: Pregabalin 50 MG CAPSULE PO SCH ×2 (07:58→16:06)
[2020-02-02] MEDS: carvediloL 25 MG TABLET PO SCH ×2 (07:58→16:06)
[2020-02-02] MEDS: Ranolazine 500 MG TAB.ER.12H PO SCH (07:58)
[2020-02-02] MEDS ORDERED: Aspirin Enteric Coated 81 MG Tablet PO SCH (09:00)
[2020-02-02] MEDS ORDERED: FLUoxetine 20 MG CAPSULE PO SCH (09:00)
[2020-02-02] MEDS ORDERED: *HR* Amiodarone 200 MG TABLET PO SCH (09:00)
[2020-02-02] MEDS: *HR* HYDROcodone/Acet 5/325 mg TABLET PO PRN ×2 (09:42→16:06)
[2020-02-02 16:21] VITALS: BP 123/72
== END 2020-02-02 18:10 | disposition home or self-care (01) | DRG 253 ==
LOC: SAMDAY 08:52 → ICNU 16:17
PROVIDERS: ADMIT Surgery; ATTEND Surgery

== ENCOUNTER 2020-07-30 10:55 | Inpatient (IN) ==
[~2020-07-30 10:55] MED LIST changes: +Acetaminophen IV 1,000 MG/100 ML BAG IVPB ONE; -Acetaminophen IV 1,000 MG/100 ML INFUS..BTL IVPB ONE; -Pregabalin 75 MG CAPSULE PO ONE; -Ringers Solution, Lactated 1,000 ML IVC SCH; -Vancomycin 1,000 MG, Sodium Chloride IRRigation 1,000 ML IR ONE
[2020-07-30] MEDS ORDERED: Protamine Sulfate 50 MG/5 ML VIAL IVP ONE (11:03)
[2020-07-30] MEDS ORDERED: Heparin 1,000 UNITS/500 mL 500 ML ONE (11:04)
[2020-07-30] MEDS ORDERED: CeFAZolin Syr 2,000MG/20 ML 2,000 MG/20 ML SYRINGE IVPB ONE (11:30)
[2020-07-30] MEDS ORDERED: Ringers Solution, Lactated 1,000 ML IVC SCH (11:30)
[2020-07-30] MEDS ORDERED: Insulin Human Regular 10 UNIT in 0.9 % Sodium Chloride 10 ML IV ONE (11:37)
[2020-07-30] MEDS ORDERED: Ondansetron 4 MG/2 ML VIAL IVP PRN ×2 (11:44→18:52)
[2020-07-30] MEDS ORDERED: *HR* OxyCODONE Immed Rel 5 MG TABLET PO PRN (11:44)
[2020-07-30] MEDS ORDERED: *HR* Labetalol 20 MG/4 ML SYRINGE IVP PRN ×2 (11:44→18:52)
[2020-07-30] MEDS ORDERED: Morphine Sulfate 2 MG/ML SYRINGE IVP PRN (11:44)
[2020-07-30] MEDS ORDERED: Clindamycin 900 MG/50 ML 900 MG/50 ML IV.SOLN IVPB ONE (11:49)
[2020-07-30] MEDS ORDERED: Lidocaine HCL 4 ML Topical Solution (Laryng-O-Jet Kit Sterile Pak) TP ONE (11:56)
[2020-07-30] MEDS ORDERED: *HR* Propofol 200 MG/20 ML VIAL IVP ONE (11:59)
[2020-07-30] MEDS ORDERED: *HR* FentaNYL (PF) 100 MCG/2 ML VIAL ONE ×2 (11:59→16:13)
[2020-07-30] MEDS ORDERED: *HR* Midazolam HCl 2 MG/2 ML VIAL ONE (11:59)
[2020-07-30] MEDS ORDERED: Vancomycin 1,250 MG/262.5 ML IV.SOLN IVPB ONE (12:00)
[2020-07-30] MEDS ORDERED: Lidocaine -MPF 2% 2 ML VIAL ONE (12:01)
[2020-07-30] MEDS ORDERED: *HR* Rocuronium Bromide 50 MG/5 ML VIAL ONE ×3 (12:02→16:08)
[2020-07-30] MEDS ORDERED: Vancomycin 1,000 MG, Sodium Chloride IRRigation 1,000 ML IR ONE (12:30)
[2020-07-30] MEDS ORDERED: Ondansetron 4 MG/2 ML VIAL ONE ×2 (13:05→16:18)
[2020-07-30] MEDS ORDERED: *HR* Heparin 5,000 UNIT/ML VIAL ONE ×2 (13:47→14:41)
[2020-07-30] MEDS ORDERED: Sugammadex Sodium 200 MG/2 ML VIAL IV ONE (14:37)
[2020-07-30] MEDS ORDERED: *HR* Vasopressin 20 UNIT/ML VIAL ONE (15:57)
[2020-07-30] MEDS ORDERED: Insulin Human Regular 8 UNIT in 0.9 % Sodium Chloride 10 ML IV ONE (17:23)
[2020-07-30] MEDS ORDERED: Albumin 25% 25gram/100mL 25 GM/100 ML IV.SOLN IVC SCH (17:30)
[2020-07-30] MEDS ORDERED: Albumin Human 5% 25.0 GM/500 ML IV.SOLN ONE (17:57)
[2020-07-30] MEDS ORDERED: Albumin Human 5% 12.5 GM/250 ML IV.SOLN IVC SCH (18:00)
[2020-07-30] MEDS ORDERED: Dextrose Gel 15 GM/37.5 ML TUBE PO PRN ×2 (18:52)
[2020-07-30] MEDS ORDERED: D5% in Water 1,000 ML IVC PRN (18:52)
[2020-07-30] MEDS ORDERED: Naloxone 0.4 MG/ML INJ IVP PRN ×2 (18:52)
[2020-07-30] MEDS ORDERED: *HR* HYDROcodone/Acet 5/325 mg TABLET PO PRN (18:52)
[2020-07-30] MEDS ORDERED: Nitroglycerin 0.4 MG TAB.SUBL SL PRN (18:52)
[2020-07-30] MEDS ORDERED: Acetaminophen 325 MG TABLET PO PRN ×2 (18:52)
[2020-07-30] MEDS ORDERED: *HR* Dextrose 50 % in Water (Vial) 50 ML VIAL IVP PRN (18:52)
[2020-07-30] MEDS ORDERED: 0.9 % Sodium Chloride 1,000 ML IVC SCH (18:52)
[2020-07-30] MEDS: *HR* OxyCODONE Immed Rel 5 MG TABLET PO PRN (21:45)
[2020-07-30] MEDS: Ranolazine 500 MG TAB.ER.12H PO SCH (21:47)
[2020-07-30] MEDS: Insulin LISPRO 300 UNITS/3 ML VIAL SUBQ SCH (21:53)
[2020-07-31] MEDS ORDERED: Vancomycin 1,250 MG/262.5 ML IV.SOLN IVPB ONE
[2020-07-31] MEDS: Pregabalin 50 MG CAPSULE PO SCH ×2 (00:32→08:59)
[2020-07-31] MEDS ORDERED: 0.9 % Sodium Chloride 1,000 ML IVC SCH (00:43)
[2020-07-31] MEDS: *HR* HYDROcodone/Acet 5/325 mg TABLET PO PRN ×2 (00:47→08:59)
[2020-07-31] MEDS: *HR* OxyCODONE Immed Rel 5 MG TABLET PO PRN ×2 (04:20→20:19)
[2020-07-31 04:26] LABS: Basophils # 0.1 K/mcL (0.0-0.2); Basophils % 0.5 %; Hematocrit 27.1 % (35.3-44.9); Hemoglobin 8.8 g/dL (11.5-15.4); Immature Granulocytes % 0.5 % (0-4); Lymphocytes # 1.3 K/mcL (0.6-4.6); Lymphocytes % 13.9 %; Mean Corpuscular HGB Conc 32.5 g/dL (31.6-35.5); Mean Corpuscular Hemoglobin 28.1 pg (28.0-33.3); Mean Corpuscular Volume 86.6 fL (83.0-100.0); Monocytes # 0.6 K/mcL (0.0-1.3); Monocytes % 6.7 %; Neutrophils # 7.3 K/mcL (1.6-8.9); Platelet Count 153 K/mcL (140-400); Red Blood Count 3.13 M/mcL (3.82-4.97); Red Cell Distribution Width 13.7 % (11.5-14.5); Segmented Neutrophils % 78.4 %; White Blood Count 9.3 K/mcL (4.3-11.1)
[2020-07-31 04:44] LABS: BUN/Creatinine Ratio 31 (6-26); Blood Urea Nitrogen 22 mg/dL (6-20); Calcium 7.7 mg/dL (8.6-10.3); Carbon Dioxide 22 mEq/L (23-29); Chloride 107 mEq/L (98-107); Glucose 255 mg/dL (70-105); Osmolality,Calculated 292 (280-300); Potassium 4.2 mEq/L (3.5-5.1); Sodium 135 mEq/L (136-145); eGFR For African Americans > 60 (> 60); eGFR For Non-African Americans > 60 (> 60)
[2020-07-31] MEDS ORDERED: *HR* Heparin 5,000 UNIT/ML VIAL SQ SCH ×2 (06:00)
[2020-07-31] MEDS: Ranolazine 500 MG TAB.ER.12H PO SCH ×2 (08:58→20:43)
[2020-07-31] MEDS: Aspirin Enteric Coated 81 MG Tablet PO SCH (08:58)
[2020-07-31] MEDS: FLUoxetine 20 MG CAPSULE PO SCH (08:59)
[2020-07-31] MEDS: *HR* Amiodarone 200 MG TABLET PO SCH (08:59)
[2020-07-31] MEDS: carvediloL 25 MG TABLET PO SCH ×2 (08:59→17:43)
[2020-07-31] MEDS: Insulin LISPRO 300 UNITS/3 ML VIAL SUBQ SCH ×4 (09:00→20:44)
[2020-07-31] MEDS: *HR* Metoprolol 5 MG/5 ML VIAL IVP SCH ×3 (09:51→17:43)
[2020-07-31] MEDS ORDERED: *HR* Heparin 5,000 UNIT/ML VIAL IVP PRN ×2 (13:37)
[2020-07-31] MEDS ORDERED: *HR* Heparin 5,000 UNIT/ML VIAL IVP ONE (13:37)
[2020-07-31] MEDS ORDERED: Heparin 25,000UNIT/250ML 1/2NS 25,000 UNIT/250 ML IV.SOLN IVC SCH (13:45)
[2020-07-31 15:35] LABS: Hematocrit 26.7 % (35.3-44.9); Hemoglobin 8.8 g/dL (11.5-15.4); Mean Corpuscular Hemoglobin 28.6 pg (28.0-33.3); Mean Corpuscular Volume 86.7 fL (83.0-100.0); Mean Platelet Volume 11.4 fL (9.4-12.4); Platelet Count 155 K/mcL (140-400); Red Blood Count 3.08 M/mcL (3.82-4.97); Red Cell Distribution Width 14.1 % (11.5-14.5); White Blood Count 9.2 K/mcL (4.3-11.1)
[2020-07-31 15:44] LABS: INR 1.2; Prothrombin Time 13.8 Seconds (9.4-12.1)
[2020-07-31 15:45] LABS: Heparin anti-factor XA UFH 0.92 IU/mL (0.30-0.70)
[2020-07-31] MEDS ORDERED: DULAGLUTIDE 0.75 MG/0.5 ML SQ SCH (17:37)
[2020-07-31] MEDS ORDERED: [UNRECOGNIZED DRUG - OTHER] SQ SCH (17:37)
[2020-08-01] MEDS: *HR* Metoprolol 5 MG/5 ML VIAL IVP SCH ×3 (02:18→11:42)
[2020-08-01] MEDS: *HR* OxyCODONE Immed Rel 5 MG TABLET PO PRN ×2 (02:19→09:49)
[2020-08-01 02:25] LABS: Basophils % 0.3 %; Eosinophils % 0.1 %; Hematocrit 26.5 % (35.3-44.9); Hemoglobin 8.7 g/dL (11.5-15.4); Immature Granulocytes % 0.5 % (0-4); Lymphocytes # 1.1 K/mcL (0.6-4.6); Lymphocytes % 10.7 %; Mean Corpuscular HGB Conc 32.8 g/dL (31.6-35.5); Mean Corpuscular Hemoglobin 28.2 pg (28.0-33.3); Mean Corpuscular Volume 85.8 fL (83.0-100.0); Mean Platelet Volume 10.8 fL (9.4-12.4); Monocytes # 0.9 K/mcL (0.0-1.3); Neutrophils # 7.8 K/mcL (1.6-8.9); Platelet Count 153 K/mcL (140-400); Red Blood Count 3.09 M/mcL (3.82-4.97); Red Cell Distribution Width 13.9 % (11.5-14.5); Segmented Neutrophils % 79.4 %; White Blood Count 9.8 K/mcL (4.3-11.1)
[2020-08-01 02:48] LABS: BUN/Creatinine Ratio 30 (6-26); Blood Urea Nitrogen 18 mg/dL (6-20); Carbon Dioxide 21 mEq/L (23-29); Chloride 102 mEq/L (98-107); Glucose 190 mg/dL (70-105); Osmolality,Calculated 281 (280-300); Potassium 4.1 mEq/L (3.5-5.1); Sodium 132 mEq/L (136-145); eGFR For African Americans > 60 (> 60); eGFR For Non-African Americans > 60 (> 60)
[2020-08-01 03:21] LABS: Adenovirus Not Detected (Not Detect); Bordetella Pertussis Not Detected (Not Detect); Chlamydophila pneumoniae Not Detected (Not Detect); Coronavirus 229E Not Detected (Not Detect); Coronavirus HKU1 Not Detected (Not Detect); Coronavirus NL63 Not Detected (Not Detect); Coronavirus OC43 Not Detected (Not Detect); Human Metapneumovirus Not Detected (Not Detect); Human Rhinovirus/Enterovirus Not Detected (Not Detect); Influenza A Subtype 2009 H1 Not Detected (Not Detect); Influenza B Not Detected (Not Detect); Mycoplasma pneumoniae Not Detected (Not Detect); Parainfluenza Virus 1 Not Detected (Not Detect); Parainfluenza Virus 2 Not Detected (Not Detect); Parainfluenza Virus 3 Not Detected (Not Detect); Parainfluenza Virus 4 Not Detected (Not Detect); Respiratory Syncytial Virus Not Detected (Not Detect); SARS-CoV-2 Not Detected (Not Detect)
[2020-08-01] MEDS: *HR* Amiodarone 200 MG TABLET PO SCH (07:39)
[2020-08-01] MEDS: FLUoxetine 20 MG CAPSULE PO SCH (07:39)
[2020-08-01] MEDS: Ranolazine 500 MG TAB.ER.12H PO SCH ×2 (07:39→21:15)
[2020-08-01] MEDS: Aspirin Enteric Coated 81 MG Tablet PO SCH (07:39)
[2020-08-01] MEDS: carvediloL 25 MG TABLET PO SCH (07:39)
[2020-08-01] MEDS: Insulin LISPRO 300 UNITS/3 ML VIAL SUBQ SCH ×4 (07:41→21:50)
[2020-08-01] MEDS ORDERED: Pregabalin 50 MG CAPSULE PO SCH (09:00)
[2020-08-01] MEDS ORDERED: *HR* FentaNYL (PF) 100 MCG/2 ML VIAL ONE (11:59)
[2020-08-01] MEDS ORDERED: *HR* Rocuronium Bromide 50 MG/5 ML VIAL ONE (11:59)
[2020-08-01] MEDS ORDERED: Lidocaine -MPF 2% 2 ML VIAL ONE (11:59)
[2020-08-01] MEDS ORDERED: *HR* Midazolam HCl 2 MG/2 ML VIAL ONE (11:59)
[2020-08-01] MEDS ORDERED: Ondansetron 4 MG/2 ML VIAL ONE (11:59)
[2020-08-01] MEDS ORDERED: *HR* Propofol 200 MG/20 ML VIAL IVP ONE (11:59)
[2020-08-01] MEDS ORDERED: Vancomycin 1,000 MG VIAL ONE ×2 (12:08→13:25)
[2020-08-01] MEDS ORDERED: Heparin 1,000 UNITS/500 mL 1,000 ML ONE (12:08)
[2020-08-01] MEDS ORDERED: Albumin Human 5% 25.0 GM/500 ML IV.SOLN ONE (12:50)
[2020-08-01] MEDS ORDERED: *HR* Magnesium Sulfate 1 GM/2 ML VIAL ONE (13:15)
[2020-08-01] MEDS ORDERED: Clindamycin 900 MG/50 ML 900 MG/50 ML IV.SOLN IVPB ONE ×2 (13:24→14:40)
[2020-08-01] MEDS ORDERED: Lidocaine HCL 4 ML Topical Solution (Laryng-O-Jet Kit Sterile Pak) TP ONE (13:52)
[2020-08-01] MEDS ORDERED: *HR* Heparin 5,000 UNIT/ML VIAL ONE (14:12)
[2020-08-01] MEDS ORDERED: *HR* Phenylephrine 10 MG/ML VIAL ONE (14:15)
[2020-08-01] MEDS ORDERED: Vancomycin 1,000 MG in Sodium Chloride IRRigation 250 ML IR ONE (14:39)
[2020-08-01] MEDS ORDERED: 0.9 % Sodium Chloride Mini Bag 100 ML ONE (14:40)
[2020-08-01] MEDS ORDERED: *HR* Norepinephrine 4 MG/4 ML VIAL IVC ONE (14:54)
[2020-08-01] MEDS ORDERED: Vancomycin 1,000 MG, Sodium Chloride IRRigation 1,000 ML IR ONE ×2 (15:00→17:19)
[2020-08-01] MEDS ORDERED: Sugammadex Sodium 200 MG/2 ML VIAL IV ONE (15:50)
[2020-08-01] MEDS ORDERED: Naloxone 0.4 MG/ML INJ IVP PRN (17:19)
[2020-08-01] MEDS ORDERED: *HR* Dextrose 50 % in Water (Vial) 50 ML VIAL IVP PRN (17:19)
[2020-08-01] MEDS ORDERED: Nitroglycerin 0.4 MG TAB.SUBL SL PRN (17:19)
[2020-08-01] MEDS ORDERED: *HR* Labetalol 20 MG/4 ML SYRINGE IVP PRN (17:19)
[2020-08-01] MEDS ORDERED: D5% in Water 1,000 ML IVC PRN (17:19)
[2020-08-01] MEDS ORDERED: Dextrose Gel 15 GM/37.5 ML TUBE PO PRN ×2 (17:19)
[2020-08-01] MEDS: *HR* Heparin 5,000 UNIT/ML VIAL SQ SCH (18:32)
[2020-08-02 01:50] LABS: Basophils % 0.1 %; Hematocrit 24.8 % (35.3-44.9); Immature Granulocytes % 0.6 % (0-4); Lymphocytes # 0.5 K/mcL (0.6-4.6); Lymphocytes % 4.6 %; Mean Corpuscular HGB Conc 32.3 g/dL (31.6-35.5); Mean Corpuscular Hemoglobin 28.4 pg (28.0-33.3); Mean Corpuscular Volume 87.9 fL (83.0-100.0); Mean Platelet Volume 11.7 fL (9.4-12.4); Monocytes # 0.7 K/mcL (0.0-1.3); Monocytes % 7.1 %; Platelet Count 133 K/mcL (140-400); Red Blood Count 2.82 M/mcL (3.82-4.97); Red Cell Distribution Width 14.1 % (11.5-14.5); Segmented Neutrophils % 87.6 %; White Blood Count 10.2 K/mcL (4.3-11.1)
[2020-08-02 02:11] LABS: BUN/Creatinine Ratio 30 (6-26); Blood Urea Nitrogen 26 mg/dL (6-20); Calcium 8.3 mg/dL (8.6-10.3); Carbon Dioxide 18 mEq/L (23-29); Chloride 102 mEq/L (98-107); Glucose 363 mg/dL (70-105); Osmolality,Calculated 291 (280-300); Potassium 4.6 mEq/L (3.5-5.1); Sodium 131 mEq/L (136-145); eGFR For African Americans > 60 (> 60); eGFR For Non-African Americans > 60 (> 60)
[2020-08-02] MEDS: *HR* Heparin 5,000 UNIT/ML VIAL SQ SCH ×2 (06:42→18:45)
[2020-08-02] MEDS: Ranolazine 500 MG TAB.ER.12H PO SCH ×2 (08:01→21:35)
[2020-08-02] MEDS: *HR* Amiodarone 200 MG TABLET PO SCH (08:02)
[2020-08-02] MEDS: *HR* OxyCODONE Immed Rel 5 MG TABLET PO PRN ×2 (08:02→21:34)
[2020-08-02] MEDS: Aspirin Enteric Coated 81 MG Tablet PO SCH (08:02)
[2020-08-02] MEDS: FLUoxetine 20 MG CAPSULE PO SCH (08:02)
[2020-08-02] MEDS: Pregabalin 50 MG CAPSULE PO SCH (08:02)
[2020-08-02] MEDS: Insulin LISPRO 300 UNITS/3 ML VIAL SUBQ SCH ×4 (08:07→21:35)
[2020-08-02] MEDS: carvediloL 25 MG TABLET PO SCH ×2 (10:11→17:22)
[2020-08-02] MEDS: Acetaminophen 325 MG TABLET PO PRN (10:27)
[2020-08-02] MEDS: *HR* HYDROcodone/Acet 5/325 mg TABLET PO PRN (14:25)
[2020-08-02 15:16] LABS: Hematocrit 26.7 % (35.3-44.9); Hemoglobin 8.8 g/dL (11.5-15.4)
[2020-08-02] MEDS: *HR* Pioglitazone 30 MG TABLET PO SCH (18:45)
[2020-08-02] MEDS: *HR* Metformin 500 MG TABLET PO SCH (18:45)
[2020-08-03] MEDS: *HR* Heparin 5,000 UNIT/ML VIAL SQ SCH ×2 (05:30→18:03)
[2020-08-03] MEDS: *HR* OxyCODONE Immed Rel 5 MG TABLET PO PRN ×2 (05:43→14:55)
[2020-08-03] MEDS: *HR* Amiodarone 200 MG TABLET PO SCH (10:16)
[2020-08-03] MEDS: Pregabalin 50 MG CAPSULE PO SCH (10:16)
[2020-08-03] MEDS: FLUoxetine 20 MG CAPSULE PO SCH (10:16)
[2020-08-03] MEDS: Ranolazine 500 MG TAB.ER.12H PO SCH ×2 (10:17→20:48)
[2020-08-03] MEDS: *HR* Metformin 500 MG TABLET PO SCH ×2 (10:17→18:03)
[2020-08-03] MEDS: *HR* Pioglitazone 30 MG TABLET PO SCH (10:17)
[2020-08-03] MEDS: *HR* HYDROcodone/Acet 5/325 mg TABLET PO PRN ×2 (10:17→20:48)
[2020-08-03] MEDS: Aspirin Enteric Coated 81 MG Tablet PO SCH (10:17)
[2020-08-03] MEDS: Insulin LISPRO 300 UNITS/3 ML VIAL SUBQ SCH ×4 (10:18→20:38)
[2020-08-03] MEDS: carvediloL 25 MG TABLET PO SCH ×2 (10:25→18:14)
[2020-08-03] MEDS ORDERED: *HR* Pioglitazone 30 MG TABLET PO SCH (18:10)
[2020-08-03] MEDS ORDERED: *HR* Metformin 500 MG TABLET PO SCH (18:11)
[2020-08-03] MEDS ORDERED: Insulin DETEMIR 100 UNIT/ML X5UNITS SUBQ SCH (21:00)
[2020-08-04 01:53] LABS: Basophils % 0.1 %; Eosinophils % 0.2 %; Hemoglobin 8.4 g/dL (11.5-15.4); Immature Granulocytes % 0.7 % (0-4); Lymphocytes # 1.2 K/mcL (0.6-4.6); Mean Corpuscular HGB Conc 32.3 g/dL (31.6-35.5); Mean Corpuscular Hemoglobin 27.7 pg (28.0-33.3); Mean Corpuscular Volume 85.8 fL (83.0-100.0); Mean Platelet Volume 11.1 fL (9.4-12.4); Monocytes # 1.1 K/mcL (0.0-1.3); Monocytes % 12.5 %; Neutrophils # 6.4 K/mcL (1.6-8.9); Platelet Count 217 K/mcL (140-400); Red Blood Count 3.03 M/mcL (3.82-4.97); Red Cell Distribution Width 13.8 % (11.5-14.5); Segmented Neutrophils % 72.5 %; White Blood Count 8.8 K/mcL (4.3-11.1)
[2020-08-04 02:08] LABS: Calcium 8.5 mg/dL (8.6-10.3); Potassium 4.2 mEq/L (3.5-5.1)
[2020-08-04 03:46] LABS: Estimated Average Glucose 260 mg/dl; Hemoglobin A1C 10.7 %
[2020-08-04] MEDS: *HR* Heparin 5,000 UNIT/ML VIAL SQ SCH ×2 (05:53→16:28)
[2020-08-04] MEDS: *HR* HYDROcodone/Acet 5/325 mg TABLET PO PRN ×2 (06:00→12:53)
[2020-08-04] MEDS: Insulin LISPRO 300 UNITS/3 ML VIAL SUBQ SCH ×4 (07:43→20:37)
[2020-08-04] MEDS: Aspirin Enteric Coated 81 MG Tablet PO SCH (07:44)
[2020-08-04] MEDS: *HR* Metformin 500 MG TABLET PO SCH ×2 (07:44→16:27)
[2020-08-04] MEDS: Pregabalin 50 MG CAPSULE PO SCH (07:44)
[2020-08-04] MEDS: *HR* Amiodarone 200 MG TABLET PO SCH (07:44)
[2020-08-04] MEDS: *HR* Pioglitazone 30 MG TABLET PO SCH (07:44)
[2020-08-04] MEDS: carvediloL 25 MG TABLET PO SCH ×2 (07:45→16:27)
[2020-08-04] MEDS: Ranolazine 500 MG TAB.ER.12H PO SCH ×2 (07:45→22:15)
[2020-08-04] MEDS: FLUoxetine 20 MG CAPSULE PO SCH (07:45)
[2020-08-04] MEDS: Insulin DETEMIR 100 UNIT/ML X5UNITS SUBQ SCH ×2 (07:51→20:37)
[2020-08-04 08:50] LABS: Bacteria,Urine Few per hpf (None-Few); Bilirubin,Urine Negative (Negative); Blood,Urine Large (Negative); Budding Yeast,Urine Many per hpf (None Seen); Clarity,Urine Turbid (Clear); Color,Urine Yellow (Yellow); Glucose,Urine (UA) Normal (Normal); Hyaline Casts,Urine Few per lpf (None Seen); Ketones,Urine Negative (Negative); Leukocyte Esterase,Urine Trace (Negative); Mucus,Urine Few per lpf (None-Few); Nitrite,Urine Negative (Negative); Protein,Urine 70 mg/dL (Neg-Trace); Squamous Epithelial Cell,Urine Few per hpf (None-Few); Transitional Epi Cells,Urine Few per hpf (None-Few); Urobilinogen,Urine Normal (Normal)
[2020-08-04] MEDS: Acetaminophen 325 MG TABLET PO PRN (16:33)
[2020-08-04] MEDS: Ondansetron 4 MG/2 ML VIAL IVP PRN (20:49)
[2020-08-05] MEDS: Insulin LISPRO 300 UNITS/3 ML VIAL SUBQ SCH ×4 (07:50→22:03)
[2020-08-05] MEDS: *HR* Pioglitazone 30 MG TABLET PO SCH (07:51)
[2020-08-05] MEDS: Pregabalin 50 MG CAPSULE PO SCH (07:51)
[2020-08-05] MEDS: *HR* Metformin 500 MG TABLET PO SCH ×2 (07:51→16:52)
[2020-08-05] MEDS: Ranolazine 500 MG TAB.ER.12H PO SCH ×2 (07:51→21:39)
[2020-08-05] MEDS: Aspirin Enteric Coated 81 MG Tablet PO SCH (07:52)
[2020-08-05] MEDS: *HR* Amiodarone 200 MG TABLET PO SCH (07:52)
[2020-08-05] MEDS: FLUoxetine 20 MG CAPSULE PO SCH (07:52)
[2020-08-05] MEDS: *HR* Heparin 5,000 UNIT/ML VIAL SQ SCH ×2 (07:52→18:25)
[2020-08-05] MEDS: carvediloL 25 MG TABLET PO SCH ×2 (07:57→16:53)
[2020-08-05] MEDS: Insulin DETEMIR 100 UNIT/ML X5UNITS SUBQ SCH ×2 (07:59→22:03)
[2020-08-05] MEDS: *HR* OxyCODONE Immed Rel 5 MG TABLET PO PRN ×2 (08:13→23:12)
[2020-08-05] MEDS: *HR* HYDROcodone/Acet 5/325 mg TABLET PO PRN ×2 (12:05→21:39)
[2020-08-05] MEDS: Ondansetron 4 MG/2 ML VIAL IVP PRN (21:40)
[2020-08-06] MEDS: *HR* Heparin 5,000 UNIT/ML VIAL SQ SCH (05:47)
[2020-08-06] MEDS: Insulin DETEMIR 100 UNIT/ML X5UNITS SUBQ SCH (07:28)
[2020-08-06] MEDS: *HR* Pioglitazone 30 MG TABLET PO SCH (07:29)
[2020-08-06] MEDS: Insulin LISPRO 300 UNITS/3 ML VIAL SUBQ SCH ×2 (07:29→11:19)
[2020-08-06] MEDS: Ranolazine 500 MG TAB.ER.12H PO SCH (07:29)
[2020-08-06] MEDS: Pregabalin 50 MG CAPSULE PO SCH (07:29)
[2020-08-06] MEDS: Aspirin Enteric Coated 81 MG Tablet PO SCH (07:29)
[2020-08-06] MEDS: *HR* Amiodarone 200 MG TABLET PO SCH (07:31)
[2020-08-06] MEDS: carvediloL 25 MG TABLET PO SCH (07:31)
[2020-08-06] MEDS: *HR* Metformin 500 MG TABLET PO SCH (07:31)
[2020-08-06] MEDS: FLUoxetine 20 MG CAPSULE PO SCH (07:31)
[2020-08-06] MEDS: *HR* HYDROcodone/Acet 5/325 mg TABLET PO PRN (07:44)
[2020-08-06 11:32] LABS: Adenovirus Not Detected (Not Detect); Coronavirus 229E Not Detected (Not Detect); Coronavirus HKU1 Not Detected (Not Detect); Coronavirus NL63 Not Detected (Not Detect); Coronavirus OC43 Not Detected (Not Detect); Human Metapneumovirus Not Detected (Not Detect); Human Rhinovirus/Enterovirus Not Detected (Not Detect); Influenza A Subtype 2009 H1 Not Detected (Not Detect); Influenza B Not Detected (Not Detect); Parainfluenza Virus 1 Not Detected (Not Detect); Parainfluenza Virus 2 Not Detected (Not Detect); Parainfluenza Virus 3 Not Detected (Not Detect); Parainfluenza Virus 4 Not Detected (Not Detect); SARS-CoV-2 Not Detected (Not Detect)
[2020-08-06 11:33] LABS: Bordetella Pertussis Not Detected (Not Detect); Chlamydophila pneumoniae Not Detected (Not Detect); Mycoplasma pneumoniae Not Detected (Not Detect); Respiratory Syncytial Virus Not Detected (Not Detect)
[2020-08-06 16:19] VITALS: BP 114/60
== END 2020-08-06 16:34 | disposition home or self-care (01) | DRG 253 ==
LOC: SAMDAY 10:55 → 2NNU 19:04 → SUATTDRO 19:04
PROVIDERS: ADMIT Surgery; ATTEND Internal Medicine

== ENCOUNTER 2020-11-06 17:45 | Inpatient (IN) ==
[2020-11-06] MEDS ORDERED: Isovue-370 500 ML BOTTLE IVP ONE (19:15)
[2020-11-06 20:07] LABS: Basophils % 0.4 %; Eosinophils % 0.5 %; Hematocrit 31.8 % (35.3-44.9); Hemoglobin 9.8 g/dL (11.5-15.4); Immature Granulocytes % 0.2 % (0-4); Lymphocytes # 0.9 K/mcL (0.6-4.6); Lymphocytes % 10.8 %; Mean Corpuscular HGB Conc 30.8 g/dL (31.6-35.5); Mean Corpuscular Hemoglobin 24.1 pg (28.0-33.3); Mean Corpuscular Volume 78.3 fL (83.0-100.0); Mean Platelet Volume 10.1 fL (9.4-12.4); Monocytes # 0.6 K/mcL (0.0-1.3); Neutrophils # 6.4 K/mcL (1.6-8.9); Platelet Count 262 K/mcL (140-400); Red Blood Count 4.06 M/mcL (3.82-4.97); Red Cell Distribution Width 17.2 % (11.5-14.5); Segmented Neutrophils % 80.1 %
[2020-11-06 20:14] LABS: INR 1.2; Prothrombin Time 13.8 Seconds (9.4-12.1)
[2020-11-06 20:17] LABS: Activated Partial Thrombo Time 27.1 Seconds (26.0-36.0)
[2020-11-06] MEDS ORDERED: *HR* HYDROmorphone (PF) 1 MG/ML SYRINGE IVP ONE ×2 (20:37→20:40)
[2020-11-06 20:57] LABS: Alanine Aminotransferase 12 Units/L (7-52); Albumin 3.7 g/dL (3.5-5.7); Albumin/Globulin Ratio 1.1 (1.1-2.2); Alkaline Phosphatase 83 Units/L (34-104); Aspartate Amino Transferase 14 Units/L (13-39); BUN/Creatinine Ratio 31 (6-26); Bilirubin,Total 0.3 mg/dL (0.3-1.0); Blood Urea Nitrogen 27 mg/dL (6-20); Carbon Dioxide 24 mEq/L (23-29); Chloride 99 mEq/L (98-107); Globulin 3.5 g/dL (2.4-3.5); Glucose 194 mg/dL (70-105); Osmolality,Calculated 286 (280-300); Potassium 4.1 mEq/L (3.5-5.1); Sodium 133 mEq/L (136-145); Total Protein 7.2 g/dL (6.4-8.9); eGFR For African Americans > 60 (> 60); eGFR For Non-African Americans > 60 (> 60)
[2020-11-06] MEDS ORDERED: *HR* Heparin 5,000 UNIT/ML VIAL IVP PRN (20:59)
[2020-11-06] MEDS ORDERED: *HR* Heparin 5,000 UNIT/ML VIAL IVP ONE (20:59)
[2020-11-06] MEDS: Heparin 25,000UNIT/250ML 1/2NS 25,000 UNIT/250 ML IV.SOLN IVC SCH (21:12)
[2020-11-07] MEDS ORDERED: Naloxone 0.4 MG/ML INJ IVP PRN (01:08)
[2020-11-07] MEDS ORDERED: Ondansetron ODT 4 MG TAB.RAPDIS SL PRN (01:08)
[2020-11-07] MEDS ORDERED: Dextrose Gel 15 GM/37.5 ML TUBE PO PRN ×2 (01:09)
[2020-11-07] MEDS ORDERED: *HR* Dextrose 50 % in Water (Vial) 50 ML VIAL IVP PRN (01:09)
[2020-11-07] MEDS ORDERED: D5% in Water 1,000 ML IVC PRN (01:09)
[2020-11-07 03:00] LABS: Basophils % 0.5 %; Eosinophils # 0.1 K/mcL (0.0-0.6); Eosinophils % 0.9 %; Hematocrit 30.7 % (35.3-44.9); Hemoglobin 9.5 g/dL (11.5-15.4); Immature Granulocytes % 0.5 % (0-4); Lymphocytes # 1.1 K/mcL (0.6-4.6); Lymphocytes % 15.9 %; Mean Corpuscular HGB Conc 30.9 g/dL (31.6-35.5); Mean Corpuscular Hemoglobin 24.1 pg (28.0-33.3); Mean Corpuscular Volume 77.9 fL (83.0-100.0); Monocytes # 0.6 K/mcL (0.0-1.3); Monocytes % 9.6 %; Neutrophils # 4.8 K/mcL (1.6-8.9); Platelet Count 258 K/mcL (140-400); Red Blood Count 3.94 M/mcL (3.82-4.97); Segmented Neutrophils % 72.6 %; White Blood Count 6.7 K/mcL (4.3-11.1)
[2020-11-07 03:09] LABS: INR 1.2; Prothrombin Time 14.2 Seconds (9.4-12.1)
[2020-11-07 03:19] LABS: BUN/Creatinine Ratio 29 (6-26); Blood Urea Nitrogen 21 mg/dL (6-20); C-Reactive Protein 106 mg/L (Less than 10); Calcium 9.1 mg/dL (8.6-10.3); Carbon Dioxide 24 mEq/L (23-29); Chloride 100 mEq/L (98-107); Glucose 188 mg/dL (70-105); Magnesium 1.7 mg/dL (1.6-2.6); Osmolality,Calculated 286 (280-300); Potassium 3.8 mEq/L (3.5-5.1); Sodium 134 mEq/L (136-145); eGFR For African Americans > 60 (> 60); eGFR For Non-African Americans > 60 (> 60)
[2020-11-07 03:23] LABS: Heparin anti-factor XA UFH 0.36 IU/mL (0.30-0.70)
[2020-11-07] MEDS: *HR* OxyCODONE Immed Rel 5 MG TABLET PO PRN ×3 (03:24→21:29)
[2020-11-07] MEDS: Insulin LISPRO 300 UNITS/3 ML VIAL SUBQ SCH ×5 (03:26→21:49)
[2020-11-07] MEDS: Acetaminophen 325 MG TABLET PO PRN (17:04)
[2020-11-07] MEDS: Pregabalin 50 MG CAPSULE PO SCH (21:29)
[2020-11-07] MEDS: Ranolazine 500 MG TAB.ER.12H PO SCH (21:29)
[2020-11-07] MEDS: Heparin 25,000UNIT/250ML 1/2NS 25,000 UNIT/250 ML IV.SOLN IVC SCH (21:30)
[2020-11-07] MEDS: carvediloL 6.25 MG TABLET PO SCH (21:34)
[2020-11-08 06:49] LABS: Basophils % 0.5 %; Eosinophils % 0.7 %; Hematocrit 29.7 % (35.3-44.9); Hemoglobin 9.2 g/dL (11.5-15.4); Immature Granulocytes % 0.5 % (0-4); Lymphocytes % 16.7 %; Mean Corpuscular Hemoglobin 24.7 pg (28.0-33.3); Mean Corpuscular Volume 79.8 fL (83.0-100.0); Mean Platelet Volume 10.4 fL (9.4-12.4); Monocytes # 0.6 K/mcL (0.0-1.3); Monocytes % 10.3 %; Neutrophils # 4.4 K/mcL (1.6-8.9); Platelet Count 255 K/mcL (140-400); Red Blood Count 3.72 M/mcL (3.82-4.97); Red Cell Distribution Width 16.9 % (11.5-14.5); Segmented Neutrophils % 71.3 %; White Blood Count 6.1 K/mcL (4.3-11.1)
[2020-11-08 07:05] LABS: BUN/Creatinine Ratio 28 (6-26); Blood Urea Nitrogen 23 mg/dL (6-20); Calcium 8.7 mg/dL (8.6-10.3); Carbon Dioxide 26 mEq/L (23-29); Chloride 101 mEq/L (98-107); Glucose 169 mg/dL (70-105); Osmolality,Calculated 286 (280-300); Potassium 4.3 mEq/L (3.5-5.1); Sodium 134 mEq/L (136-145); eGFR For African Americans > 60 (> 60); eGFR For Non-African Americans > 60 (> 60)
[2020-11-08] MEDS: Ranolazine 500 MG TAB.ER.12H PO SCH ×2 (08:39→20:15)
[2020-11-08] MEDS: Acetaminophen 325 MG TABLET PO PRN (08:40)
[2020-11-08] MEDS: *HR* Amiodarone 200 MG TABLET PO SCH (08:40)
[2020-11-08] MEDS: Aspirin Enteric Coated 81 MG Tablet PO SCH (08:40)
[2020-11-08] MEDS: FLUoxetine 20 MG CAPSULE PO SCH (08:41)
[2020-11-08] MEDS: Insulin LISPRO 300 UNITS/3 ML VIAL SUBQ SCH ×4 (08:50→20:16)
[2020-11-08] MEDS: carvediloL 6.25 MG TABLET PO SCH (08:51)
[2020-11-08] MEDS: Pregabalin 50 MG CAPSULE PO SCH ×4 (09:10→20:15)
[2020-11-08] MEDS ORDERED: 0.9 % Sodium Chloride 1,000 ML ONE (10:23)
[2020-11-08] MEDS: Clindamycin 600 MG/50 ML 600 MG/50 ML IV.SOLN IVPB SCH ×3 (10:38→23:25)
[2020-11-08] MEDS ORDERED: 0.9 % Sodium Chloride 250 ML IV ONE ×2 (10:46→11:34)
[2020-11-08] MEDS: *HR* Heparin 5,000 UNIT/ML VIAL IVP PRN (11:47)
[2020-11-08] MEDS ORDERED: 0.9 % Sodium Chloride 500 ML IVC PRN (12:34)
[2020-11-08] MEDS ORDERED: Ketorolac 30 MG/ML VIAL IVP ONE (13:23)
[2020-11-08] MEDS ORDERED: 0.9 % Sodium Chloride 1,000 ML IVC ONE (13:45)
[2020-11-08] MEDS ORDERED: Albumin 25% 25gram/100mL 25 GM/100 ML IV.SOLN IVPB ONE (14:52)
[2020-11-08] MEDS ORDERED: Lidocaine -MPF 2% 5 ML VIAL ONE ×2 (15:47→16:12)
[2020-11-08] MEDS: Ringers Solution, Lactated 500 ML IVC SCH ×3 (17:00→23:25)
[2020-11-08] MEDS: Heparin 25,000UNIT/250ML 1/2NS 25,000 UNIT/250 ML IV.SOLN IVC SCH ×2 (17:04→19:34)
[2020-11-08] MEDS: Vancomycin 1,250 MG/262.5 ML IV.SOLN IVPB SCH (17:53)
[2020-11-08] MEDS: *HR* OxyCODONE Immed Rel 5 MG TABLET PO PRN (19:31)
[2020-11-08] MEDS: Norepinephrine 4 MG/254 ML IV.SOLN IVC SCH (19:35)
[2020-11-08] MEDS: Cefepime HCl 1,000 MG in Water for inj. (sterile) 10 ML IVP SCH (23:25)
[2020-11-09] MEDS: *HR* OxyCODONE Immed Rel 5 MG TABLET PO PRN ×2 (03:46→15:34)
[2020-11-09 04:04] LABS: Basophils % 0.3 %; Eosinophils % 0.3 %; Hematocrit 26.3 % (35.3-44.9); Hemoglobin 7.9 g/dL (11.5-15.4); Immature Granulocytes % 0.5 % (0-4); Lymphocytes # 0.8 K/mcL (0.6-4.6); Lymphocytes % 13.1 %; Mean Corpuscular Hemoglobin 24.1 pg (28.0-33.3); Mean Corpuscular Volume 80.2 fL (83.0-100.0); Mean Platelet Volume 10.4 fL (9.4-12.4); Monocytes # 0.6 K/mcL (0.0-1.3); Monocytes % 10.3 %; Neutrophils # 4.5 K/mcL (1.6-8.9); Platelet Count 210 K/mcL (140-400); Red Blood Count 3.28 M/mcL (3.82-4.97); Red Cell Distribution Width 16.9 % (11.5-14.5); Segmented Neutrophils % 75.5 %
[2020-11-09 04:16] LABS: Alanine Aminotransferase 8 Units/L (7-52); Albumin 3.2 g/dL (3.5-5.7); Albumin/Globulin Ratio 1.1 (1.1-2.2); Alkaline Phosphatase 63 Units/L (34-104); Aspartate Amino Transferase 10 Units/L (13-39); BUN/Creatinine Ratio 26 (6-26); Bilirubin,Total 0.2 mg/dL (0.3-1.0); Blood Urea Nitrogen 29 mg/dL (6-20); Calcium 8.2 mg/dL (8.6-10.3); Carbon Dioxide 25 mEq/L (23-29); Chloride 102 mEq/L (98-107); Glucose 194 mg/dL (70-105); Osmolality,Calculated 287 (280-300); Potassium 4.2 mEq/L (3.5-5.1); Sodium 133 mEq/L (136-145); Total Protein 6.2 g/dL (6.4-8.9); eGFR For African Americans > 60 (> 60); eGFR For Non-African Americans 50 (> 60)
[2020-11-09] MEDS: Vancomycin 1,250 MG/262.5 ML IV.SOLN IVPB SCH ×2 (06:10→18:20)
[2020-11-09] MEDS ORDERED: Furosemide 20 MG/2 ML VIAL IVP ONE (06:34)
[2020-11-09] MEDS: Acetaminophen 325 MG TABLET PO PRN (07:13)
[2020-11-09] MEDS: Clindamycin 600 MG/50 ML 600 MG/50 ML IV.SOLN IVPB SCH (08:28)
[2020-11-09] MEDS: Cefepime HCl 1,000 MG in Water for inj. (sterile) 10 ML IVP SCH ×3 (08:28→23:24)
[2020-11-09] MEDS: Pregabalin 50 MG CAPSULE PO SCH ×3 (08:28→20:54)
[2020-11-09] MEDS: FLUoxetine 20 MG CAPSULE PO SCH (08:28)
[2020-11-09] MEDS: Aspirin Enteric Coated 81 MG Tablet PO SCH (08:28)
[2020-11-09] MEDS: Insulin LISPRO 300 UNITS/3 ML VIAL SUBQ SCH ×4 (08:29→20:45)
[2020-11-09] MEDS: Ranolazine 500 MG TAB.ER.12H PO SCH ×2 (08:29→20:43)
[2020-11-09] MEDS: *HR* Amiodarone 200 MG TABLET PO SCH (08:29)
[2020-11-09] MEDS ORDERED: Ibuprofen 400 MG TABLET PO ONE (08:59)
[2020-11-09] MEDS: Norepinephrine 4 MG/254 ML IV.SOLN IVC SCH (12:47)
[2020-11-09] MEDS: *HR* Heparin 5,000 UNIT/ML VIAL IVP PRN (13:07)
[2020-11-09 14:14] LABS: Bacteria,Urine Few per hpf (None-Few); Bilirubin,Urine Negative (Negative); Blood,Urine Trace (Negative); Clarity,Urine Ex.Turbid (Clear); Color,Urine Yellow (Yellow); Glucose,Urine (UA) 30 mg/dL (Normal); Hyaline Casts,Urine Few per lpf (None Seen); Ketones,Urine Negative (Negative); Leukocyte Esterase,Urine Negative (Negative); Mucus,Urine Few per lpf (None-Few); Nitrite,Urine Negative (Negative); Protein,Urine 70 mg/dL (Neg-Trace); Specific Gravity,Urine 1.021 (1.010-1.025); Squamous Epithelial Cell,Urine Few per hpf (None-Few); Urobilinogen,Urine Normal (Normal); WBC,Urine 15-30 per hpf (0-3)
[2020-11-09] MEDS: Heparin 25,000UNIT/250ML 1/2NS 25,000 UNIT/250 ML IV.SOLN IVC SCH (14:15)
[2020-11-09] MEDS ORDERED: 0.9 % Sodium Chloride 250 ML ONE (14:17)
[2020-11-10] MEDS: *HR* OxyCODONE Immed Rel 5 MG TABLET PO PRN ×3 (02:21→22:40)
[2020-11-10 04:21] LABS: BUN/Creatinine Ratio 22 (6-26); Blood Urea Nitrogen 18 mg/dL (6-20); Calcium 8.5 mg/dL (8.6-10.3); Carbon Dioxide 24 mEq/L (23-29); Chloride 100 mEq/L (98-107); Glucose 170 mg/dL (70-105); Osmolality,Calculated 280 (280-300); Potassium 4.2 mEq/L (3.5-5.1); Sodium 132 mEq/L (136-145); eGFR For African Americans > 60 (> 60); eGFR For Non-African Americans > 60 (> 60)
[2020-11-10 04:27] LABS: Hematocrit 28.9 % (35.3-44.9); Hemoglobin 8.8 g/dL (11.5-15.4); Mean Corpuscular HGB Conc 30.4 g/dL (31.6-35.5); Mean Corpuscular Hemoglobin 24.6 pg (28.0-33.3); Mean Platelet Volume 10.7 fL (9.4-12.4); Platelet Count 214 K/mcL (140-400); Red Blood Count 3.57 M/mcL (3.82-4.97); Red Cell Distribution Width 16.7 % (11.5-14.5); White Blood Count 8.9 K/mcL (4.3-11.1)
[2020-11-10] MEDS: Heparin 25,000UNIT/250ML 1/2NS 25,000 UNIT/250 ML IV.SOLN IVC SCH (06:52)
[2020-11-10] MEDS: Cefepime HCl 1,000 MG in Water for inj. (sterile) 10 ML IVP SCH ×2 (08:05→16:58)
[2020-11-10] MEDS: Aspirin Enteric Coated 81 MG Tablet PO SCH (08:06)
[2020-11-10] MEDS: Pregabalin 50 MG CAPSULE PO SCH ×3 (08:06→21:17)
[2020-11-10] MEDS: Ranolazine 500 MG TAB.ER.12H PO SCH ×2 (08:06→21:17)
[2020-11-10] MEDS: FLUoxetine 20 MG CAPSULE PO SCH (08:06)
[2020-11-10] MEDS: Insulin LISPRO 300 UNITS/3 ML VIAL SUBQ SCH ×4 (08:07→20:39)
[2020-11-10] MEDS: *HR* Amiodarone 200 MG TABLET PO SCH (08:07)
[2020-11-10] MEDS: Acetaminophen 325 MG TABLET PO PRN (08:21)
[2020-11-10] MEDS ORDERED: *HR* HYDROmorphone (PF) 1 MG/ML SYRINGE IVP PRN (10:22)
[2020-11-10] MEDS ORDERED: *HR* Succinylcholine 200 MG/10 ML VIAL IVP ONE (11:17)
[2020-11-10] MEDS ORDERED: Lidocaine HCL 4 ML Topical Solution (Laryng-O-Jet Kit Sterile Pak) TP ONE (11:17)
[2020-11-10] MEDS ORDERED: *HR* Propofol 200 MG/20 ML VIAL IVP ONE (11:18)
[2020-11-10] MEDS ORDERED: Lidocaine -MPF 2% 2 ML VIAL ONE (11:18)
[2020-11-10] MEDS ORDERED: Ondansetron 4 MG/2 ML VIAL ONE (11:18)
[2020-11-10] MEDS ORDERED: *HR* FentaNYL (PF) 100 MCG/2 ML VIAL ONE (11:19)
[2020-11-10] MEDS ORDERED: *HR* Midazolam HCl 2 MG/2 ML VIAL ONE (11:20)
[2020-11-10] MEDS ORDERED: Vancomycin 1,000 MG VIAL ONE (11:20)
[2020-11-10] MEDS ORDERED: *HR* Norepinephrine 4 MG/4 ML VIAL IVC ONE (12:34)
[2020-11-10] MEDS ORDERED: *HR* Vasopressin 20 UNIT/ML VIAL ONE (12:34)
[2020-11-10] MEDS ORDERED: Albumin Human 5% 25.0 GM/500 ML IV.SOLN ONE (12:37)
[2020-11-10] MEDS ORDERED: Ringers Solution, Lactated 1,000 ML IVC ONE (12:41)
[2020-11-10] MEDS ORDERED: *HR* Rocuronium Bromide 50 MG/5 ML VIAL ONE ×2 (13:40→13:41)
[2020-11-10] MEDS ORDERED: Sugammadex Sodium 200 MG/2 ML VIAL IV ONE (13:41)
[2020-11-10] MEDS ORDERED: Ropivacaine/PF 0.5% 30 ML VIAL ONE (14:04)
[2020-11-10] MEDS: Norepinephrine 4 MG/254 ML IV.SOLN IVC SCH (14:56)
[2020-11-10] MEDS ORDERED: Naloxone 0.4 MG/ML INJ IVP PRN ×3 (16:27→18:33)
[2020-11-10] MEDS ORDERED: Acetaminophen 325 MG TABLET PO PRN ×3 (16:27→18:33)
[2020-11-10] MEDS ORDERED: *HR* OxyCODONE Immed Rel 5 MG TABLET PO PRN ×3 (16:27→18:33)
[2020-11-10] MEDS ORDERED: *HR* Dextrose 50 % in Water (Vial) 50 ML VIAL IVP PRN (16:27)
[2020-11-10] MEDS ORDERED: Ondansetron ODT 4 MG TAB.RAPDIS SL PRN (16:27)
[2020-11-10] MEDS ORDERED: D5% in Water 1,000 ML IVC PRN (16:27)
[2020-11-10] MEDS ORDERED: Dextrose Gel 15 GM/37.5 ML TUBE PO PRN ×2 (16:27)
[2020-11-10] MEDS ORDERED: *HR* HYDROcodone/Acet 5/325 mg TABLET PO PRN ×4 (16:27→18:33)
[2020-11-10] MEDS: carvediloL 6.25 MG TABLET PO SCH (16:58)
[2020-11-10] MEDS ORDERED: Vancomycin 1,250 MG/262.5 ML IV.SOLN IVPB SCH (18:00)
[2020-11-11] MEDS: Cefepime HCl 1,000 MG in Water for inj. (sterile) 10 ML IVP SCH ×5 (00:13→23:53)
[2020-11-11] MEDS: *HR* OxyCODONE Immed Rel 5 MG TABLET PO PRN ×2 (02:15→08:00)
[2020-11-11 02:47] LABS: VBG Ionized Calcium 1.19 mmol/L (1.15-1.35)
[2020-11-11 02:47] LABS: Basophils % 0.1 %; Hematocrit 29.2 % (35.3-44.9); Immature Granulocytes % 0.6 % (0-4); Lymphocytes # 0.6 K/mcL (0.6-4.6); Lymphocytes % 5.8 %; Mean Corpuscular HGB Conc 30.8 g/dL (31.6-35.5); Mean Corpuscular Hemoglobin 24.7 pg (28.0-33.3); Mean Platelet Volume 9.8 fL (9.4-12.4); Monocytes # 0.8 K/mcL (0.0-1.3); Monocytes % 7.5 %; Neutrophils # 8.9 K/mcL (1.6-8.9); Platelet Count 219 K/mcL (140-400); Red Blood Count 3.65 M/mcL (3.82-4.97); Red Cell Distribution Width 16.6 % (11.5-14.5); White Blood Count 10.3 K/mcL (4.3-11.1)
[2020-11-11 03:05] LABS: Alanine Aminotransferase 9 Units/L (7-52); Albumin 3.2 g/dL (3.5-5.7); Alkaline Phosphatase 60 Units/L (34-104); Aspartate Amino Transferase 15 Units/L (13-39); BUN/Creatinine Ratio 30 (6-26); Bilirubin,Total 0.3 mg/dL (0.3-1.0); Blood Urea Nitrogen 19 mg/dL (6-20); Calcium 8.7 mg/dL (8.6-10.3); Carbon Dioxide 22 mEq/L (23-29); Chloride 99 mEq/L (98-107); Globulin 3.2 g/dL (2.4-3.5); Glucose 201 mg/dL (70-105); Magnesium 1.7 mg/dL (1.6-2.6); Osmolality,Calculated 284 (280-300); Phosphorous 2.2 mg/dL (2.7-4.5); Potassium 4.2 mEq/L (3.5-5.1); Sodium 133 mEq/L (136-145); Total Protein 6.4 g/dL (6.4-8.9); eGFR For African Americans > 60 (> 60); eGFR For Non-African Americans > 60 (> 60)
[2020-11-11] MEDS: *HR* Heparin 5,000 UNIT/ML VIAL SQ SCH ×2 (06:11→17:38)
[2020-11-11] MEDS: Pregabalin 50 MG CAPSULE PO SCH ×3 (08:01→21:04)
[2020-11-11] MEDS: Ranolazine 500 MG TAB.ER.12H PO SCH ×2 (08:01→21:05)
[2020-11-11] MEDS: *HR* Amiodarone 200 MG TABLET PO SCH (08:01)
[2020-11-11] MEDS: FLUoxetine 20 MG CAPSULE PO SCH (08:01)
[2020-11-11] MEDS: Aspirin Enteric Coated 81 MG Tablet PO SCH (08:02)
[2020-11-11] MEDS: carvediloL 6.25 MG TABLET PO SCH (08:02)
[2020-11-11] MEDS: Insulin LISPRO 300 UNITS/3 ML VIAL SUBQ SCH ×4 (08:03→21:05)
[2020-11-11] MEDS ORDERED: Ketorolac 30 MG/ML VIAL IVP ONE (12:00)
[2020-11-11] MEDS: Ketorolac 15 MG/ML VIAL IVP SCH ×2 (17:38→23:52)
[2020-11-12 03:59] LABS: Basophils % 0.1 %; Eosinophils % 0.1 %; Hematocrit 30.7 % (35.3-44.9); Hemoglobin 9.3 g/dL (11.5-15.4); Immature Granulocytes % 0.5 % (0-4); Lymphocytes # 0.8 K/mcL (0.6-4.6); Lymphocytes % 9.2 %; Mean Corpuscular HGB Conc 30.3 g/dL (31.6-35.5); Mean Corpuscular Hemoglobin 24.7 pg (28.0-33.3); Mean Corpuscular Volume 81.6 fL (83.0-100.0); Mean Platelet Volume 10.5 fL (9.4-12.4); Monocytes # 0.8 K/mcL (0.0-1.3); Monocytes % 9.7 %; Neutrophils # 6.6 K/mcL (1.6-8.9); Platelet Count 245 K/mcL (140-400); Red Blood Count 3.76 M/mcL (3.82-4.97); Red Cell Distribution Width 16.8 % (11.5-14.5); Segmented Neutrophils % 80.4 %; White Blood Count 8.2 K/mcL (4.3-11.1)
[2020-11-12 04:21] LABS: BUN/Creatinine Ratio 30 (6-26); Blood Urea Nitrogen 34 mg/dL (6-20); Calcium 8.5 mg/dL (8.6-10.3); Carbon Dioxide 23 mEq/L (23-29); Chloride 102 mEq/L (98-107); Glucose 187 mg/dL (70-105); Osmolality,Calculated 289 (280-300); Potassium 4.6 mEq/L (3.5-5.1); Sodium 133 mEq/L (136-145); eGFR For African Americans > 60 (> 60); eGFR For Non-African Americans 50 (> 60)
[2020-11-12] MEDS: Ketorolac 15 MG/ML VIAL IVP SCH ×4 (05:25→23:50)
[2020-11-12] MEDS: *HR* Heparin 5,000 UNIT/ML VIAL SQ SCH ×2 (05:26→18:29)
[2020-11-12] MEDS: FLUoxetine 20 MG CAPSULE PO SCH (08:26)
[2020-11-12] MEDS: *HR* Amiodarone 200 MG TABLET PO SCH (08:26)
[2020-11-12] MEDS: Ranolazine 500 MG TAB.ER.12H PO SCH ×2 (08:26→20:44)
[2020-11-12] MEDS: Pregabalin 50 MG CAPSULE PO SCH ×3 (08:26→20:44)
[2020-11-12] MEDS: Aspirin Enteric Coated 81 MG Tablet PO SCH (08:27)
[2020-11-12] MEDS: Cefepime HCl 1,000 MG in Water for inj. (sterile) 10 ML IVP SCH ×3 (08:27→23:51)
[2020-11-12] MEDS: Insulin LISPRO 300 UNITS/3 ML VIAL SUBQ SCH ×4 (08:27→20:43)
[2020-11-12] MEDS ORDERED: 0.9 % Sodium Chloride 1,000 ML IV ONE (16:50)
[2020-11-12] MEDS ORDERED: 0.9 % Sodium Chloride 1,000 ML ONE (16:51)
[2020-11-12] MEDS: carvediloL 6.25 MG TABLET PO SCH (16:59)
[2020-11-12 17:26] LABS: Hematocrit 32.6 % (35.3-44.9); Hemoglobin 10.1 g/dL (11.5-15.4); Mean Corpuscular Hemoglobin 25.3 pg (28.0-33.3); Mean Corpuscular Volume 81.7 fL (83.0-100.0); Mean Platelet Volume 10.2 fL (9.4-12.4); Platelet Count 269 K/mcL (140-400); Red Blood Count 3.99 M/mcL (3.82-4.97); Red Cell Distribution Width 16.6 % (11.5-14.5); White Blood Count 7.4 K/mcL (4.3-11.1)
[2020-11-12 17:39] LABS: Calcium 8.8 mg/dL (8.6-10.3); Potassium 4.3 mEq/L (3.5-5.1)
[2020-11-12 17:47] LABS: VBG HCO3 27 mEq/L (21-27); VBG PCO2 56 mmHg (41-51); VBG PH 7.29 pH Units (7.32-7.42); VBG PO2 114 mmHg (25-50)
[2020-11-12] MEDS: 0.9 % Sodium Chloride 1,000 ML IVC SCH (18:29)
[2020-11-12] MEDS: Insulin DETEMIR 100 UNIT/ML X5UNITS SUBQ SCH (20:44)
[2020-11-13 02:09] LABS: Hematocrit 26.9 % (35.3-44.9); Mean Corpuscular HGB Conc 31.2 g/dL (31.6-35.5); Mean Corpuscular Hemoglobin 25.4 pg (28.0-33.3); Mean Corpuscular Volume 81.3 fL (83.0-100.0); Mean Platelet Volume 9.9 fL (9.4-12.4); Platelet Count 221 K/mcL (140-400); Red Blood Count 3.31 M/mcL (3.82-4.97); Red Cell Distribution Width 16.9 % (11.5-14.5); White Blood Count 5.7 K/mcL (4.3-11.1)
[2020-11-13 02:14] LABS: Hemoglobin 8.4 g/dL (11.5-15.4)
[2020-11-13 02:23] LABS: Magnesium 1.9 mg/dL (1.6-2.6); Phosphorous 2.3 mg/dL (2.7-4.5); Potassium 4.2 mEq/L (3.5-5.1)
[2020-11-13] MEDS: Ketorolac 15 MG/ML VIAL IVP SCH ×3 (05:39→17:19)
[2020-11-13] MEDS: *HR* Heparin 5,000 UNIT/ML VIAL SQ SCH ×2 (05:39→17:20)
[2020-11-13] MEDS: 0.9 % Sodium Chloride 1,000 ML IVC SCH (05:44)
[2020-11-13] MEDS: Insulin LISPRO 300 UNITS/3 ML VIAL SUBQ SCH ×4 (07:43→22:10)
[2020-11-13] MEDS: Cefepime HCl 1,000 MG in Water for inj. (sterile) 10 ML IVP SCH (09:02)
[2020-11-13] MEDS: Aspirin Enteric Coated 81 MG Tablet PO SCH (09:03)
[2020-11-13] MEDS: FLUoxetine 20 MG CAPSULE PO SCH (09:04)
[2020-11-13] MEDS: *HR* Amiodarone 200 MG TABLET PO SCH (09:04)
[2020-11-13] MEDS: Pregabalin 50 MG CAPSULE PO SCH ×3 (09:04→22:11)
[2020-11-13] MEDS: Ranolazine 500 MG TAB.ER.12H PO SCH ×2 (09:06→22:11)
[2020-11-13] MEDS: Insulin DETEMIR 100 UNIT/ML X5UNITS SUBQ SCH (22:11)
[2020-11-14] MEDS: Ketorolac 15 MG/ML VIAL IVP SCH ×4 (00:49→17:06)
[2020-11-14 05:11] LABS: Hematocrit 28.3 % (35.3-44.9); Hemoglobin 9.1 g/dL (11.5-15.4); Mean Corpuscular HGB Conc 32.2 g/dL (31.6-35.5); Mean Corpuscular Hemoglobin 25.6 pg (28.0-33.3); Mean Corpuscular Volume 79.5 fL (83.0-100.0); Mean Platelet Volume 10.1 fL (9.4-12.4); Platelet Count 280 K/mcL (140-400); Red Blood Count 3.56 M/mcL (3.82-4.97); Red Cell Distribution Width 16.8 % (11.5-14.5); White Blood Count 6.5 K/mcL (4.3-11.1)
[2020-11-14 05:35] LABS: BUN/Creatinine Ratio 28 (6-26); Blood Urea Nitrogen 31 mg/dL (6-20); Calcium 8.3 mg/dL (8.6-10.3); Carbon Dioxide 24 mEq/L (23-29); Chloride 106 mEq/L (98-107); Glucose 127 mg/dL (70-105); Magnesium 1.9 mg/dL (1.6-2.6); Osmolality,Calculated 290 (280-300); Phosphorous 1.8 mg/dL (2.7-4.5); Sodium 136 mEq/L (136-145); eGFR For African Americans > 60 (> 60); eGFR For Non-African Americans 52 (> 60)
[2020-11-14] MEDS: *HR* Heparin 5,000 UNIT/ML VIAL SQ SCH ×2 (06:04→17:14)
[2020-11-14] MEDS: Insulin LISPRO 300 UNITS/3 ML VIAL SUBQ SCH ×3 (08:41→17:15)
[2020-11-14] MEDS: Pregabalin 50 MG CAPSULE PO SCH ×2 (08:56→17:14)
[2020-11-14] MEDS: FLUoxetine 20 MG CAPSULE PO SCH (08:56)
[2020-11-14] MEDS: Aspirin Enteric Coated 81 MG Tablet PO SCH (08:57)
[2020-11-14] MEDS: Ranolazine 500 MG TAB.ER.12H PO SCH (08:57)
[2020-11-14] MEDS: *HR* Amiodarone 200 MG TABLET PO SCH (08:57)
[2020-11-14 18:50] VITALS: BP 133/69; PULSE 67; TEMP 98; O2SAT 95
== END 2020-11-14 19:18 | disposition other institution (70) | DRG 853 ==
LOC: CDU 17:45 → EMEROOARM 17:45 → SUATTDRO 11-07 01:47 → CDU 11-07 02:31 → 3NENU 11-07 18:03 → SUATTDRO 11-07 20:15 → ICNU 11-08 15:34 → 2NNU 11-10 20:59 → 2ANU 11-11 15:35
PROVIDERS: ADMIT Internal Medicine; ATTEND Internal Medicine

== ENCOUNTER 2020-12-28 22:30 | Observation (INO) ==
[2020-12-28] MEDS ORDERED: Isovue-370 500 ML BOTTLE IVP ONE (22:35)
[2020-12-28 22:56] LABS: Basophils % 0.3 %; Eosinophils % 0.2 %; Hematocrit 32.9 % (35.3-44.9); Hemoglobin 10.8 g/dL (11.5-15.4); Immature Granulocytes % 0.5 % (0-4); Lymphocytes # 1.5 K/mcL (0.6-4.6); Lymphocytes % 16.8 %; Mean Corpuscular HGB Conc 32.8 g/dL (31.6-35.5); Mean Corpuscular Hemoglobin 25.7 pg (28.0-33.3); Mean Corpuscular Volume 78.3 fL (83.0-100.0); Mean Platelet Volume 9.8 fL (9.4-12.4); Monocytes # 0.8 K/mcL (0.0-1.3); Monocytes % 9.6 %; Neutrophils # 6.3 K/mcL (1.6-8.9); Platelet Count 227 K/mcL (140-400); Segmented Neutrophils % 72.6 %; White Blood Count 8.7 K/mcL (4.3-11.1)
[2020-12-28] MEDS ORDERED: Aspirin 325 MG TABLET PO ONE (22:56)
[2020-12-28 23:03] LABS: INR 1.2; Prothrombin Time 13.4 Seconds (9.4-12.1)
[2020-12-28] MEDS: Nitroglycerin 0.4 MG TAB.SUBL SL PRN (23:03)
[2020-12-28 23:06] LABS: Activated Partial Thrombo Time 30.4 Seconds (26.0-36.0)
[2020-12-28 23:37] LABS: Bacteria,Urine Few per hpf (None-Few); Bilirubin,Urine Negative (Negative); Blood,Urine Moderate (Negative); Clarity,Urine Clear (Clear); Color,Urine Yellow (Yellow); Glucose,Urine (UA) >=1000 mg/dL (Normal); Ketones,Urine Negative (Negative); Leukocyte Esterase,Urine Negative (Negative); Mucus,Urine Few per lpf (None-Few); Nitrite,Urine Negative (Negative); PH,Urine 5.5 pH Units (5.0-8.0); Protein,Urine 100 mg/dL (Neg-Trace); Specific Gravity,Urine 1.029 (1.010-1.025); Squamous Epithelial Cell,Urine Few per hpf (None-Few); Urobilinogen,Urine Normal (Normal); WBC,Urine 0-3 per hpf (0-3)
[2020-12-28 23:47] LABS: Amphetamine Screen,Urine Negative ng/mL (Cutoff=1000); Barbiturate Screen,Urine Negative ng/mL (Cutoff=200); Benzodiazepines Screen,Urine Negative ng/mL (Cutoff=200); Cannabinoid Screen,Urine Negative ng/mL (Cutoff = 50); Cocaine Screen,Urine Negative ng/mL (Cutoff= 300); Opiate Screen,Urine Negative ng/mL (Cutoff=300); Phencyclidine Screen,Urine Negative ng/mL (Cutoff=25)
[2020-12-28 23:56] LABS: Alanine Aminotransferase 6 Units/L (7-52); Albumin 3.7 g/dL (3.5-5.7); Alkaline Phosphatase 80 Units/L (34-104); Aspartate Amino Transferase 7 Units/L (13-39); BUN/Creatinine Ratio 21 (6-26); Bilirubin,Direct 0.1 mg/dL (0.0-0.2); Bilirubin,Indirect 0.3 mg/dL (0.0-1.0); Bilirubin,Total 0.4 mg/dL (0.3-1.0); Blood Urea Nitrogen 17 mg/dL (6-20); Calcium 9.1 mg/dL (8.6-10.3); Carbon Dioxide 22 mEq/L (23-29); Chloride 98 mEq/L (98-107); Globulin 3.6 g/dL (2.4-3.5); Glucose 326 mg/dL (70-105); Osmolality,Calculated 286 (280-300); Potassium 3.8 mEq/L (3.5-5.1); Sodium 131 mEq/L (136-145); Total Protein 7.3 g/dL (6.4-8.9); eGFR For African Americans > 60 (> 60); eGFR For Non-African Americans > 60 (> 60)
[2020-12-28 23:56] LABS: Influenza A PCR Negative (Negative); Influenza B PCR Negative (Negative); Resp. Syncytial Virus PCR Negative (Negative); SARS-CoV-2 by PCR (In House) Negative (Negative)
[2020-12-28 23:57] LABS: Ethanol < 10 mg/dL (Less than 10); Thyroid Stimulating Hormone 1.537 mcIU/mL (0.340-5.600)
[2020-12-28 23:58] LABS: Troponin I < 0.03 ng/mL (< 0.04)
[2020-12-29] MEDS: Nitroglycerin 0.4 MG TAB.SUBL SL PRN (00:27)
[2020-12-29] MEDS ORDERED: *HR* Heparin 5,000 UNIT/ML VIAL IVP ONE (01:18)
[2020-12-29] MEDS ORDERED: *HR* Heparin 5,000 UNIT/ML VIAL IVP PRN (01:18)
[2020-12-29] MEDS ORDERED: Acetaminophen 325 MG TABLET PO PRN (01:44)
[2020-12-29] MEDS ORDERED: Naloxone 0.4 MG/ML INJ IVP PRN (01:44)
[2020-12-29] MEDS ORDERED: Ondansetron 4 MG/2 ML VIAL IVP PRN (01:44)
[2020-12-29] MEDS ORDERED: Dextrose Gel 15 GM/37.5 ML TUBE PO PRN ×2 (01:48)
[2020-12-29] MEDS ORDERED: D5% in Water 1,000 ML IVC PRN (01:48)
[2020-12-29] MEDS ORDERED: *HR* Dextrose 50 % in Water (Vial) 50 ML VIAL IVP PRN (01:48)
[2020-12-29 04:15] LABS: Heparin anti-factor XA UFH < 0.04 IU/mL (0.30-0.70); INR 1.2; Prothrombin Time 13.4 Seconds (9.4-12.1)
[2020-12-29] MEDS: Heparin 25,000UNIT/250ML 1/2NS 25,000 UNIT/250 ML IV.SOLN IVC SCH (05:07)
[2020-12-29] MEDS: Insulin LISPRO 300 UNITS/3 ML VIAL SUBQ SCH ×3 (05:49→17:15)
[2020-12-29 06:31] LABS: Hematocrit 29.6 % (35.3-44.9); Hemoglobin 9.6 g/dL (11.5-15.4); Mean Corpuscular HGB Conc 32.4 g/dL (31.6-35.5); Mean Corpuscular Hemoglobin 26.1 pg (28.0-33.3); Mean Corpuscular Volume 80.4 fL (83.0-100.0); Mean Platelet Volume 10.3 fL (9.4-12.4); Platelet Count 219 K/mcL (140-400); Red Blood Count 3.68 M/mcL (3.82-4.97); White Blood Count 6.6 K/mcL (4.3-11.1)
[2020-12-29 06:54] LABS: Chol/HDL Ratio 4.1 (0-4.9); Cholesterol 152 mg/dL (< 200); HDL Cholesterol 37 mg/dL (40-59); LDL Cholesterol,Calculated 95 mg/dL (< 100); Triglycerides 98 mg/dL (< 150)
[2020-12-29 07:09] LABS: Estimated Average Glucose 180 mg/dl; Hemoglobin A1C 7.9 %
[2020-12-29 07:14] LABS: Troponin I < 0.03 ng/mL (< 0.04)
[2020-12-29] MEDS: carvediloL 25 MG TABLET PO SCH ×2 (07:58→17:15)
[2020-12-29] MEDS: Ranolazine 500 MG TAB.ER.12H PO SCH ×2 (07:58→20:46)
[2020-12-29] MEDS: *HR* Amiodarone 200 MG TABLET PO SCH (07:58)
[2020-12-29] MEDS: Aspirin Enteric Coated 81 MG Tablet PO SCH (07:59)
[2020-12-29] MEDS: *HR* Heparin 5,000 UNIT/ML VIAL IVP PRN ×2 (12:41→17:47)
[2020-12-29] MEDS ORDERED: Insulin DETEMIR 100 UNIT/ML X5UNITS SUBQ SCH (21:00)
[2020-12-30 01:01] LABS: Hemoglobin 8.9 g/dL (11.5-15.4); Mean Corpuscular HGB Conc 31.8 g/dL (31.6-35.5); Mean Corpuscular Hemoglobin 25.3 pg (28.0-33.3); Mean Corpuscular Volume 79.5 fL (83.0-100.0); Mean Platelet Volume 10.7 fL (9.4-12.4); Platelet Count 203 K/mcL (140-400); Red Blood Count 3.52 M/mcL (3.82-4.97); White Blood Count 4.8 K/mcL (4.3-11.1)
[2020-12-30 01:11] LABS: BUN/Creatinine Ratio 26 (6-26); Blood Urea Nitrogen 25 mg/dL (6-20); Calcium 8.6 mg/dL (8.6-10.3); Carbon Dioxide 24 mEq/L (23-29); Chloride 99 mEq/L (98-107); Glucose 319 mg/dL (70-105); Osmolality,Calculated 293 (280-300); Potassium 3.9 mEq/L (3.5-5.1); Sodium 133 mEq/L (136-145); eGFR For African Americans > 60 (> 60); eGFR For Non-African Americans 58 (> 60)
[2020-12-30] MEDS: Insulin LISPRO 300 UNITS/3 ML VIAL SUBQ SCH ×5 (01:37→18:17)
[2020-12-30] MEDS: Heparin 25,000UNIT/250ML 1/2NS 25,000 UNIT/250 ML IV.SOLN IVC SCH (03:05)
[2020-12-30] MEDS: *HR* Heparin 5,000 UNIT/ML VIAL IVP PRN (07:42)
[2020-12-30] MEDS: Ranolazine 500 MG TAB.ER.12H PO SCH (07:45)
[2020-12-30] MEDS: carvediloL 25 MG TABLET PO SCH ×2 (07:46→18:17)
[2020-12-30] MEDS: Aspirin Enteric Coated 81 MG Tablet PO SCH (07:46)
[2020-12-30] MEDS: *HR* Amiodarone 200 MG TABLET PO SCH (07:46)
[2020-12-30 11:41] VITALS: PULSE 59
[2020-12-30] MEDS ORDERED: FLUoxetine 20 MG CAPSULE PO SCH (12:30)
[2020-12-30] MEDS ORDERED: Regadenoson 0.4 MG/5 ML SYRINGE IVP ONE ×2 (12:40→12:43)
[2020-12-30] MEDS: Regadenoson 0.4 MG/5 ML SYRINGE IVP ONE ×2 (12:41→13:07)
[2020-12-30 14:52] VITALS: BP 110/59; TEMP 97.7; O2SAT 100
[2020-12-30] MEDS ORDERED: Pregabalin 50 MG CAPSULE PO SCH (15:00)
== END 2020-12-30 19:20 | disposition home health service (06) ==
LOC: 3BNU 22:30 → EMEROOARM 22:30 → SUATTDRO 12-29 01:25 → 3BNU 12-29 03:00
PROVIDERS: ADMIT Internal Medicine; ATTEND Internal Medicine

== ENCOUNTER 2021-05-13 20:24 | Inpatient (IN) ==
[2021-05-13] MEDS ORDERED: *HR* OxyCODONE/APAP 5/325 TABLET PO ONE (22:31)
[2021-05-13 23:29] LABS: Basophils # 0.1 K/mcL (0.0-0.2); Basophils % 0.8 %; Eosinophils # 0.1 K/mcL (0.0-0.6); Eosinophils % 1.2 %; Hematocrit 41.6 % (35.3-44.9); Hemoglobin 13.8 g/dL (11.5-15.4); Immature Granulocytes % 0.3 % (0-4); Lymphocytes # 1.9 K/mcL (0.6-4.6); Lymphocytes % 25.5 %; Mean Corpuscular HGB Conc 33.2 g/dL (31.6-35.5); Mean Corpuscular Hemoglobin 27.7 pg (28.0-33.3); Mean Corpuscular Volume 83.4 fL (83.0-100.0); Monocytes # 0.6 K/mcL (0.0-1.3); Monocytes % 8.1 %; Neutrophils # 4.7 K/mcL (1.6-8.9); Platelet Count 222 K/mcL (140-400); Red Blood Count 4.99 M/mcL (3.82-4.97); Red Cell Distribution Width 13.8 % (11.5-14.5); Segmented Neutrophils % 64.1 %; White Blood Count 7.3 K/mcL (4.3-11.1)
[2021-05-13 23:38] LABS: Prothrombin Time 10.9 Seconds (9.4-12.1)
[2021-05-13 23:41] LABS: Activated Partial Thrombo Time 30.2 Seconds (26.0-36.0); BUN/Creatinine Ratio 21 (6-26); Blood Urea Nitrogen 16 mg/dL (6-20); Calcium 9.1 mg/dL (8.6-10.3); Carbon Dioxide 26 mEq/L (23-29); Chloride 100 mEq/L (98-107); Creatine Kinase 49 Units/L (30-223); Glucose 374 mg/dL (70-105); Osmolality,Calculated 286 (280-300); Potassium 4.4 mEq/L (3.5-5.1); Sodium 130 mEq/L (136-145); eGFR For African Americans > 60 (> 60); eGFR For Non-African Americans > 60 (> 60)
[2021-05-13] MEDS ORDERED: Isovue-370 500 ML BOTTLE IVP ONE (23:42)
[2021-05-13] MEDS ORDERED: *HR* Heparin 5,000 UNIT/ML VIAL IVP PRN (23:44)
[2021-05-13] MEDS ORDERED: *HR* Heparin 5,000 UNIT/ML VIAL IVP ONE (23:44)
[2021-05-14] MEDS ORDERED: *HR* OxyCODONE/APAP 5/325 TABLET PO ONE (00:23)
[2021-05-14] MEDS: Heparin 25,000UNIT/250ML 1/2NS 25,000 UNIT/250 ML IV.SOLN IVC SCH ×2 (00:34→21:58)
[2021-05-14] MEDS ORDERED: Ondansetron 4 MG/2 ML VIAL IVP PRN (00:38)
[2021-05-14] MEDS ORDERED: Naloxone 0.4 MG/ML INJ IVP PRN (00:38)
[2021-05-14] MEDS ORDERED: Melatonin 3 MG TABLET PO PRN (00:38)
[2021-05-14] MEDS ORDERED: Ringers Solution, Lactated 1,000 ML IVC SCH (00:45)
[2021-05-14] MEDS ORDERED: D5% in Water 1,000 ML IVC PRN (01:14)
[2021-05-14] MEDS ORDERED: Dextrose Gel 15 GM/37.5 ML TUBE PO PRN ×2 (01:14)
[2021-05-14] MEDS ORDERED: *HR* Dextrose 50 % in Water (Syg) 50 ML SYRINGE IVP PRN (01:14)
[2021-05-14] MEDS ORDERED: Morphine Sulfate 2 MG/ML SYRINGE IVP ONE (01:38)
[2021-05-14] MEDS ORDERED: Insulin DETEMIR 100 UNIT/ML X5UNITS SUBQ ONE (02:14)
[2021-05-14] MEDS ORDERED: Ipratropium/Albuterol Neb 3 ML IH PRN (02:32)
[2021-05-14] MEDS ORDERED: Saliva Stimulant 44.3ml BOTTLE PO PRN (02:32)
[2021-05-14 02:37] LABS: Hematocrit 40.1 % (35.3-44.9); Hemoglobin 13.2 g/dL (11.5-15.4); Mean Corpuscular HGB Conc 32.9 g/dL (31.6-35.5); Mean Corpuscular Hemoglobin 27.8 pg (28.0-33.3); Mean Corpuscular Volume 84.4 fL (83.0-100.0); Mean Platelet Volume 11.2 fL (9.4-12.4); Platelet Count 234 K/mcL (140-400); Red Blood Count 4.75 M/mcL (3.82-4.97); Red Cell Distribution Width 13.8 % (11.5-14.5); White Blood Count 7.5 K/mcL (4.3-11.1)
[2021-05-14 02:46] LABS: INR 1.1; Prothrombin Time 12.7 Seconds (9.4-12.1)
[2021-05-14] MEDS ORDERED: Ringers Solution, Lactated 1,000 ML ONE (02:53)
[2021-05-14] MEDS: Pregabalin 50 MG CAPSULE PO SCH ×4 (02:58→21:23)
[2021-05-14 03:01] LABS: Activated Partial Thrombo Time 177.7 Seconds (26.0-36.0)
[2021-05-14 03:11] LABS: BUN/Creatinine Ratio 22 (6-26); Blood Urea Nitrogen 17 mg/dL (6-20); C-Reactive Protein 45 mg/L (Less than 10); Calcium 8.8 mg/dL (8.6-10.3); Carbon Dioxide 25 mEq/L (23-29); Chloride 100 mEq/L (98-107); Chol/HDL Ratio 5.8 (0-4.9); Cholesterol 204 mg/dL (< 200); Glucose 306 mg/dL (70-105); HDL Cholesterol 35 mg/dL (40-59); LDL Cholesterol,Calculated 150 mg/dL (< 100); Magnesium 1.9 mg/dL (1.6-2.6); Osmolality,Calculated 279 (280-300); Phosphorous 3.7 mg/dL (2.7-4.5); Sodium 128 mEq/L (136-145); Triglycerides 95 mg/dL (< 150); eGFR For African Americans > 60 (> 60); eGFR For Non-African Americans > 60 (> 60)
[2021-05-14 03:24] LABS: Influenza A PCR Negative (Negative); Influenza B PCR Negative (Negative); Resp. Syncytial Virus PCR Negative (Negative)
[2021-05-14 03:28] LABS: SARS-CoV-2 by PCR (In House) Negative (Negative)
[2021-05-14] MEDS: Ranolazine 500 MG TAB.ER.12H PO SCH ×2 (08:04→21:24)
[2021-05-14] MEDS: Multivit/Ca/Min/Fe/FA 1 TAB TABLET PO SCH (08:04)
[2021-05-14] MEDS: carvediloL 6.25 MG TABLET PO SCH ×2 (08:04→16:29)
[2021-05-14 10:21] LABS: Estimated Average Glucose 312 mg/dl; Hemoglobin A1C 12.5 %
[2021-05-14] MEDS: *HR* Heparin 5,000 UNIT/ML VIAL IVP PRN (12:29)
[2021-05-14] MEDS: Insulin LISPRO 300 UNITS/3 ML VIAL SUBQ SCH ×2 (16:58→21:24)
[2021-05-14] MEDS: Insulin DETEMIR 100 UNIT/ML X5UNITS SUBQ SCH (21:24)
[2021-05-15 02:37] LABS: Hematocrit 38.7 % (35.3-44.9); Hemoglobin 12.4 g/dL (11.5-15.4); Mean Corpuscular Hemoglobin 27.3 pg (28.0-33.3); Mean Corpuscular Volume 85.1 fL (83.0-100.0); Platelet Count 205 K/mcL (140-400); Red Blood Count 4.55 M/mcL (3.82-4.97); Red Cell Distribution Width 14.1 % (11.5-14.5); White Blood Count 5.8 K/mcL (4.3-11.1)
[2021-05-15 02:40] LABS: Calcium 8.4 mg/dL (8.6-10.3); Potassium 4.4 mEq/L (3.5-5.1)
[2021-05-15 02:45] LABS: INR 1.1; Prothrombin Time 12.5 Seconds (9.4-12.1)
[2021-05-15 02:47] LABS: Activated Partial Thrombo Time 39.7 Seconds (26.0-36.0)
[2021-05-15] MEDS: *HR* Heparin 5,000 UNIT/ML VIAL IVP PRN (04:47)
[2021-05-15] MEDS: Insulin LISPRO 300 UNITS/3 ML VIAL SUBQ SCH ×4 (07:37→20:51)
[2021-05-15] MEDS: Pregabalin 50 MG CAPSULE PO SCH ×3 (08:28→20:51)
[2021-05-15] MEDS: carvediloL 6.25 MG TABLET PO SCH ×2 (08:29→17:05)
[2021-05-15] MEDS: Ranolazine 500 MG TAB.ER.12H PO SCH ×2 (08:29→20:51)
[2021-05-15] MEDS: Multivit/Ca/Min/Fe/FA 1 TAB TABLET PO SCH (08:29)
[2021-05-15] MEDS ORDERED: Ringers Solution, Lactated 500 ML IVC ONE (15:34)
[2021-05-15] MEDS ORDERED: Vancomycin 1,250 MG/262.5 ML IV.SOLN IVPB ONE (17:00)
[2021-05-15] MEDS: metroNIDAZOLE 500 MG TABLET PO SCH ×2 (17:05→20:51)
[2021-05-15] MEDS: Cefepime HCl 2,000 MG in 0.9 % Sodium Chloride Mini Bag 100 ML IVPB SCH (17:07)
[2021-05-15] MEDS: Acetaminophen 325 MG TABLET PO PRN (17:30)
[2021-05-15] MEDS: Ringers Solution, Lactated 1,000 ML IVC SCH ×2 (17:51→22:57)
[2021-05-15] MEDS: Heparin 25,000UNIT/250ML 1/2NS 25,000 UNIT/250 ML IV.SOLN IVC SCH (17:53)
[2021-05-15] MEDS: Insulin DETEMIR 100 UNIT/ML X5UNITS SUBQ SCH (20:51)
[2021-05-15 20:52] LABS: Bilirubin,Urine Negative (Negative); Blood,Urine Negative (Negative); Clarity,Urine Clear (Clear); Color,Urine Yellow (Yellow); Glucose,Urine (UA) 70 mg/dL (Normal); Ketones,Urine Negative (Negative); Leukocyte Esterase,Urine Small (Negative); Mucus,Urine Few per lpf (None-Few); Nitrite,Urine Negative (Negative); PH,Urine 5.5 pH Units (5.0-8.0); Protein,Urine 70 mg/dL (Neg-Trace); Specific Gravity,Urine > 1.030 (1.010-1.025); Squamous Epithelial Cell,Urine Few per hpf (None-Few); Urobilinogen,Urine Normal (Normal); WBC,Urine 15-30 per hpf (0-3)
[2021-05-16] MEDS: Cefepime HCl 2,000 MG in 0.9 % Sodium Chloride Mini Bag 100 ML IVPB SCH ×2 (05:08→18:06)
[2021-05-16 05:18] LABS: Hematocrit 33.6 % (35.3-44.9); Hemoglobin 10.7 g/dL (11.5-15.4); Mean Corpuscular HGB Conc 31.8 g/dL (31.6-35.5); Mean Corpuscular Hemoglobin 27.2 pg (28.0-33.3); Mean Corpuscular Volume 85.3 fL (83.0-100.0); Mean Platelet Volume 12.3 fL (9.4-12.4); Platelet Count 161 K/mcL (140-400); Red Blood Count 3.94 M/mcL (3.82-4.97); Red Cell Distribution Width 13.8 % (11.5-14.5); White Blood Count 5.1 K/mcL (4.3-11.1)
[2021-05-16 05:24] LABS: INR 1.3
[2021-05-16 05:28] LABS: BUN/Creatinine Ratio 27 (6-26); Blood Urea Nitrogen 25 mg/dL (6-20); Calcium 8.3 mg/dL (8.6-10.3); Carbon Dioxide 24 mEq/L (23-29); Chloride 102 mEq/L (98-107); Glucose 151 mg/dL (70-105); Osmolality,Calculated 281 (280-300); Potassium 4.3 mEq/L (3.5-5.1); Sodium 132 mEq/L (136-145); eGFR For African Americans > 60 (> 60); eGFR For Non-African Americans > 60 (> 60)
[2021-05-16] MEDS: Heparin 25,000UNIT/250ML 1/2NS 25,000 UNIT/250 ML IV.SOLN IVC SCH (05:40)
[2021-05-16 05:42] LABS: Activated Partial Thrombo Time 141.6 Seconds (26.0-36.0)
[2021-05-16] MEDS: Insulin LISPRO 300 UNITS/3 ML VIAL SUBQ SCH ×4 (07:54→20:43)
[2021-05-16] MEDS: Pregabalin 50 MG CAPSULE PO SCH ×3 (08:45→20:34)
[2021-05-16] MEDS: metroNIDAZOLE 500 MG TABLET PO SCH ×3 (08:45→20:34)
[2021-05-16] MEDS: Ranolazine 500 MG TAB.ER.12H PO SCH ×2 (08:45→20:33)
[2021-05-16] MEDS: carvediloL 6.25 MG TABLET PO SCH ×2 (08:45→16:23)
[2021-05-16] MEDS: Multivit/Ca/Min/Fe/FA 1 TAB TABLET PO SCH (08:45)
[2021-05-16] MEDS: Ringers Solution, Lactated 1,000 ML IVC SCH ×2 (08:48→20:32)
[2021-05-16] MEDS: Insulin DETEMIR 100 UNIT/ML X5UNITS SUBQ SCH (21:12)
[2021-05-17] MEDS: Heparin 25,000UNIT/250ML 1/2NS 25,000 UNIT/250 ML IV.SOLN IVC SCH (02:36)
[2021-05-17 05:16] LABS: Hematocrit 30.4 % (35.3-44.9); Mean Corpuscular HGB Conc 32.9 g/dL (31.6-35.5); Mean Corpuscular Hemoglobin 27.9 pg (28.0-33.3); Mean Corpuscular Volume 84.7 fL (83.0-100.0); Mean Platelet Volume 11.1 fL (9.4-12.4); Platelet Count 159 K/mcL (140-400); Red Blood Count 3.59 M/mcL (3.82-4.97); Red Cell Distribution Width 13.7 % (11.5-14.5); White Blood Count 3.9 K/mcL (4.3-11.1)
[2021-05-17 05:28] LABS: INR 1.3; Prothrombin Time 14.9 Seconds (9.4-12.1)
[2021-05-17 05:31] LABS: Activated Partial Thrombo Time 58.9 Seconds (26.0-36.0)
[2021-05-17] MEDS: Cefepime HCl 2,000 MG in 0.9 % Sodium Chloride Mini Bag 100 ML IVPB SCH ×2 (05:47→18:15)
[2021-05-17 05:55] LABS: BUN/Creatinine Ratio 23 (6-26); Blood Urea Nitrogen 19 mg/dL (6-20); Calcium 8.1 mg/dL (8.6-10.3); Carbon Dioxide 23 mEq/L (23-29); Chloride 103 mEq/L (98-107); Glucose 114 mg/dL (70-105); Osmolality,Calculated 275 (280-300); Potassium 3.8 mEq/L (3.5-5.1); Sodium 131 mEq/L (136-145); eGFR For African Americans > 60 (> 60); eGFR For Non-African Americans > 60 (> 60)
[2021-05-17] MEDS: Insulin LISPRO 300 UNITS/3 ML VIAL SUBQ SCH ×4 (09:35→21:00)
[2021-05-17] MEDS: Pregabalin 50 MG CAPSULE PO SCH ×3 (09:47→20:38)
[2021-05-17] MEDS: Aspirin Enteric Coated 81 MG Tablet PO SCH (09:47)
[2021-05-17] MEDS: Ranolazine 500 MG TAB.ER.12H PO SCH ×2 (09:47→20:38)
[2021-05-17] MEDS: Ringers Solution, Lactated 1,000 ML IVC SCH (09:47)
[2021-05-17] MEDS: metroNIDAZOLE 500 MG TABLET PO SCH ×3 (09:48→21:00)
[2021-05-17] MEDS: Multivit/Ca/Min/Fe/FA 1 TAB TABLET PO SCH (09:48)
[2021-05-17] MEDS: carvediloL 6.25 MG TABLET PO SCH ×2 (09:49→18:14)
[2021-05-17] MEDS: *HR* Heparin 5,000 UNIT/ML VIAL IVP PRN (20:36)
[2021-05-17] MEDS: Insulin DETEMIR 100 UNIT/ML X5UNITS SUBQ SCH (20:59)
[2021-05-18] MEDS: Heparin 25,000UNIT/250ML 1/2NS 25,000 UNIT/250 ML IV.SOLN IVC SCH ×2 (00:29→20:14)
[2021-05-18] MEDS: Acetaminophen 325 MG TABLET PO PRN (00:53)
[2021-05-18] MEDS ORDERED: Morphine Sulfate 2 MG/ML SYRINGE IVP ONE (02:20)
[2021-05-18 03:30] LABS: Basophils % 0.7 %; Eosinophils # 0.1 K/mcL (0.0-0.6); Hematocrit 30.5 % (35.3-44.9); Hemoglobin 10.1 g/dL (11.5-15.4); Immature Granulocytes % 0.3 % (0-4); Lymphocytes # 0.9 K/mcL (0.6-4.6); Lymphocytes % 30.1 %; Mean Corpuscular HGB Conc 33.1 g/dL (31.6-35.5); Mean Corpuscular Hemoglobin 28.1 pg (28.0-33.3); Mean Corpuscular Volume 84.7 fL (83.0-100.0); Mean Platelet Volume 11.9 fL (9.4-12.4); Monocytes # 0.3 K/mcL (0.0-1.3); Monocytes % 11.3 %; Neutrophils # 1.6 K/mcL (1.6-8.9); Platelet Count 148 K/mcL (140-400); Red Cell Distribution Width 13.6 % (11.5-14.5); Segmented Neutrophils % 53.6 %
[2021-05-18 03:52] LABS: BUN/Creatinine Ratio 18 (6-26); Blood Urea Nitrogen 15 mg/dL (6-20); Carbon Dioxide 26 mEq/L (23-29); Chloride 103 mEq/L (98-107); Glucose 144 mg/dL (70-105); Osmolality,Calculated 279 (280-300); Potassium 3.8 mEq/L (3.5-5.1); Sodium 133 mEq/L (136-145); eGFR For African Americans > 60 (> 60); eGFR For Non-African Americans > 60 (> 60)
[2021-05-18] MEDS: Cefepime HCl 2,000 MG in 0.9 % Sodium Chloride Mini Bag 100 ML IVPB SCH ×2 (05:29→18:24)
[2021-05-18] MEDS: Pregabalin 50 MG CAPSULE PO SCH ×3 (10:28→20:09)
[2021-05-18] MEDS: Insulin LISPRO 300 UNITS/3 ML VIAL SUBQ SCH ×4 (10:28→20:09)
[2021-05-18] MEDS: carvediloL 6.25 MG TABLET PO SCH ×2 (10:28→18:36)
[2021-05-18] MEDS: Ranolazine 500 MG TAB.ER.12H PO SCH ×2 (10:29→20:10)
[2021-05-18] MEDS: metroNIDAZOLE 500 MG TABLET PO SCH ×3 (10:29→20:08)
[2021-05-18] MEDS: Aspirin Enteric Coated 81 MG Tablet PO SCH (10:29)
[2021-05-18] MEDS: Multivit/Ca/Min/Fe/FA 1 TAB TABLET PO SCH (10:29)
[2021-05-18] MEDS: Insulin DETEMIR 100 UNIT/ML X5UNITS SUBQ SCH (20:09)
[2021-05-19] MEDS: Cefepime HCl 2,000 MG in 0.9 % Sodium Chloride Mini Bag 100 ML IVPB SCH (05:09)
[2021-05-19 05:19] LABS: Basophils % 0.6 %; Eosinophils # 0.1 K/mcL (0.0-0.6); Eosinophils % 3.1 %; Hematocrit 33.5 % (35.3-44.9); Hemoglobin 10.7 g/dL (11.5-15.4); Lymphocytes # 0.9 K/mcL (0.6-4.6); Lymphocytes % 28.6 %; Mean Corpuscular HGB Conc 31.9 g/dL (31.6-35.5); Mean Corpuscular Hemoglobin 27.4 pg (28.0-33.3); Mean Corpuscular Volume 85.9 fL (83.0-100.0); Mean Platelet Volume 11.3 fL (9.4-12.4); Monocytes # 0.3 K/mcL (0.0-1.3); Monocytes % 9.5 %; Neutrophils # 1.9 K/mcL (1.6-8.9); Platelet Count 141 K/mcL (140-400); Red Cell Distribution Width 14.2 % (11.5-14.5); Segmented Neutrophils % 58.2 %; White Blood Count 3.3 K/mcL (4.3-11.1)
[2021-05-19 05:48] LABS: BUN/Creatinine Ratio 17 (6-26); Blood Urea Nitrogen 12 mg/dL (6-20); Carbon Dioxide 25 mEq/L (23-29); Chloride 105 mEq/L (98-107); Glucose 108 mg/dL (70-105); Osmolality,Calculated 284 (280-300); Potassium 4.1 mEq/L (3.5-5.1); Sodium 137 mEq/L (136-145); eGFR For African Americans > 60 (> 60); eGFR For Non-African Americans > 60 (> 60)
[2021-05-19] MEDS: carvediloL 6.25 MG TABLET PO SCH ×2 (09:07→17:25)
[2021-05-19] MEDS: Insulin LISPRO 300 UNITS/3 ML VIAL SUBQ SCH ×4 (09:07→20:10)
[2021-05-19] MEDS: Ranolazine 500 MG TAB.ER.12H PO SCH ×2 (09:10→20:02)
[2021-05-19] MEDS: Pregabalin 50 MG CAPSULE PO SCH ×3 (09:12→20:03)
[2021-05-19] MEDS: metroNIDAZOLE 500 MG TABLET PO SCH ×3 (09:12→20:03)
[2021-05-19] MEDS: Aspirin Enteric Coated 81 MG Tablet PO SCH (09:12)
[2021-05-19] MEDS: Multivit/Ca/Min/Fe/FA 1 TAB TABLET PO SCH (09:12)
[2021-05-19] MEDS: Heparin 25,000UNIT/250ML 1/2NS 25,000 UNIT/250 ML IV.SOLN IVC SCH (14:47)
[2021-05-19] MEDS: Acetaminophen 325 MG TABLET PO PRN (20:03)
[2021-05-19] MEDS: Insulin DETEMIR 100 UNIT/ML X5UNITS SUBQ SCH (20:03)
[2021-05-19] MEDS: Doxycycline 100 MG CAPSULE PO SCH (20:03)
[2021-05-20 03:34] LABS: Basophils % 0.6 %; Eosinophils # 0.1 K/mcL (0.0-0.6); Eosinophils % 2.6 %; Hematocrit 30.7 % (35.3-44.9); Hemoglobin 10.1 g/dL (11.5-15.4); Immature Granulocytes % 0.3 % (0-4); Lymphocytes # 1.1 K/mcL (0.6-4.6); Mean Corpuscular HGB Conc 32.9 g/dL (31.6-35.5); Mean Platelet Volume 12.4 fL (9.4-12.4); Monocytes # 0.3 K/mcL (0.0-1.3); Monocytes % 9.8 %; Neutrophils # 1.9 K/mcL (1.6-8.9); Platelet Count 156 K/mcL (140-400); Red Blood Count 3.61 M/mcL (3.82-4.97); Segmented Neutrophils % 55.7 %; White Blood Count 3.5 K/mcL (4.3-11.1)
[2021-05-20 03:49] LABS: BUN/Creatinine Ratio 17 (6-26); Blood Urea Nitrogen 13 mg/dL (6-20); Calcium 7.9 mg/dL (8.6-10.3); Carbon Dioxide 25 mEq/L (23-29); Chloride 106 mEq/L (98-107); Glucose 228 mg/dL (70-105); Osmolality,Calculated 287 (280-300); Potassium 3.6 mEq/L (3.5-5.1); Sodium 135 mEq/L (136-145); eGFR For African Americans > 60 (> 60); eGFR For Non-African Americans > 60 (> 60)
[2021-05-20 03:53] LABS: INR 1.2; Prothrombin Time 13.7 Seconds (9.4-12.1)
[2021-05-20 04:05] LABS: Activated Partial Thrombo Time 119.1 Seconds (26.0-36.0)
[2021-05-20] MEDS: metroNIDAZOLE 500 MG TABLET PO SCH ×3 (07:31→20:20)
[2021-05-20] MEDS: Aspirin Enteric Coated 81 MG Tablet PO SCH (07:31)
[2021-05-20] MEDS: carvediloL 6.25 MG TABLET PO SCH ×2 (07:31→17:26)
[2021-05-20] MEDS: Ranolazine 500 MG TAB.ER.12H PO SCH ×2 (07:31→20:20)
[2021-05-20] MEDS: Multivit/Ca/Min/Fe/FA 1 TAB TABLET PO SCH (07:31)
[2021-05-20] MEDS: Doxycycline 100 MG CAPSULE PO SCH ×2 (07:31→20:20)
[2021-05-20] MEDS: Pregabalin 50 MG CAPSULE PO SCH ×3 (07:31→20:20)
[2021-05-20] MEDS: Insulin LISPRO 300 UNITS/3 ML VIAL SUBQ SCH ×4 (08:57→20:21)
[2021-05-20] MEDS: Heparin 25,000UNIT/250ML 1/2NS 25,000 UNIT/250 ML IV.SOLN IVC SCH (17:27)
[2021-05-20] MEDS: Insulin DETEMIR 100 UNIT/ML X5UNITS SUBQ SCH (20:19)
[2021-05-20] MEDS: *HR* Heparin 5,000 UNIT/ML VIAL IVP PRN (20:19)
[2021-05-20] MEDS: Acetaminophen 325 MG TABLET PO PRN (20:20)
[2021-05-21] MEDS ORDERED: *HR* Heparin 10,000 UNIT/10 ML VIAL ONE (06:34)
[2021-05-21] MEDS ORDERED: 0.9 % Sodium Chloride 2,000 ML ONE (06:35)
[2021-05-21] MEDS ORDERED: Heparin 1,000 UNITS/500 mL 500 ML ONE (06:35)
[2021-05-21 06:41] LABS: Hematocrit 32.9 % (35.3-44.9); Hemoglobin 10.9 g/dL (11.5-15.4); Mean Corpuscular HGB Conc 33.1 g/dL (31.6-35.5); Mean Corpuscular Hemoglobin 28.3 pg (28.0-33.3); Mean Corpuscular Volume 85.5 fL (83.0-100.0); Mean Platelet Volume 12.1 fL (9.4-12.4); Platelet Count 163 K/mcL (140-400); Red Blood Count 3.85 M/mcL (3.82-4.97); Red Cell Distribution Width 14.3 % (11.5-14.5); White Blood Count 4.6 K/mcL (4.3-11.1)
[2021-05-21] MEDS ORDERED: *HR* Midazolam HCl 2 MG/2 ML VIAL ONE (06:42)
[2021-05-21 07:00] LABS: BUN/Creatinine Ratio 17 (6-26); Blood Urea Nitrogen 11 mg/dL (6-20); Carbon Dioxide 27 mEq/L (23-29); Chloride 105 mEq/L (98-107); Glucose 256 mg/dL (70-105); Osmolality,Calculated 294 (280-300); Potassium 3.9 mEq/L (3.5-5.1); Sodium 138 mEq/L (136-145); eGFR For African Americans > 60 (> 60); eGFR For Non-African Americans > 60 (> 60)
[2021-05-21] MEDS: carvediloL 6.25 MG TABLET PO SCH ×2 (08:31→16:20)
[2021-05-21] MEDS: Pregabalin 50 MG CAPSULE PO SCH ×3 (08:31→21:18)
[2021-05-21] MEDS: Aspirin Enteric Coated 81 MG Tablet PO SCH (08:31)
[2021-05-21] MEDS: Ranolazine 500 MG TAB.ER.12H PO SCH ×2 (08:31→21:17)
[2021-05-21] MEDS: Doxycycline 100 MG CAPSULE PO SCH ×2 (08:32→21:17)
[2021-05-21] MEDS: Multivit/Ca/Min/Fe/FA 1 TAB TABLET PO SCH (08:32)
[2021-05-21] MEDS: metroNIDAZOLE 500 MG TABLET PO SCH ×3 (08:32→21:18)
[2021-05-21] MEDS: Insulin LISPRO 300 UNITS/3 ML VIAL SUBQ SCH ×4 (09:14→21:27)
[2021-05-21] MEDS: Heparin 25,000UNIT/250ML 1/2NS 25,000 UNIT/250 ML IV.SOLN IVC SCH ×2 (12:05→21:50)
[2021-05-21] MEDS: Insulin DETEMIR 100 UNIT/ML X5UNITS SUBQ SCH (21:20)
[2021-05-22 00:47] LABS: Hematocrit 32.4 % (35.3-44.9); Hemoglobin 10.5 g/dL (11.5-15.4); Mean Corpuscular HGB Conc 32.4 g/dL (31.6-35.5); Mean Corpuscular Hemoglobin 27.4 pg (28.0-33.3); Mean Corpuscular Volume 84.6 fL (83.0-100.0); Mean Platelet Volume 11.9 fL (9.4-12.4); Platelet Count 167 K/mcL (140-400); Red Blood Count 3.83 M/mcL (3.82-4.97); Red Cell Distribution Width 14.5 % (11.5-14.5); White Blood Count 4.9 K/mcL (4.3-11.1)
[2021-05-22 00:55] LABS: Heparin anti-factor XA UFH 0.33 IU/mL (0.30-0.70)
[2021-05-22 00:56] LABS: INR 1.1; Prothrombin Time 12.2 Seconds (9.4-12.1)
[2021-05-22 00:57] LABS: Activated Partial Thrombo Time 68.9 Seconds (26.0-36.0)
[2021-05-22 01:05] LABS: BUN/Creatinine Ratio 17 (6-26); Blood Urea Nitrogen 11 mg/dL (6-20); Calcium 8.1 mg/dL (8.6-10.3); Carbon Dioxide 24 mEq/L (23-29); Chloride 106 mEq/L (98-107); Glucose 208 mg/dL (70-105); Osmolality,Calculated 283 (280-300); Potassium 3.6 mEq/L (3.5-5.1); Sodium 134 mEq/L (136-145); eGFR For African Americans > 60 (> 60); eGFR For Non-African Americans > 60 (> 60)
[2021-05-22] MEDS: carvediloL 6.25 MG TABLET PO SCH ×2 (07:55→21:25)
[2021-05-22] MEDS: Aspirin Enteric Coated 81 MG Tablet PO SCH (07:55)
[2021-05-22] MEDS: Ranolazine 500 MG TAB.ER.12H PO SCH ×2 (07:55→22:47)
[2021-05-22] MEDS: Multivit/Ca/Min/Fe/FA 1 TAB TABLET PO SCH (07:55)
[2021-05-22] MEDS: Pregabalin 50 MG CAPSULE PO SCH ×3 (07:55→22:47)
[2021-05-22] MEDS: Insulin LISPRO 300 UNITS/3 ML VIAL SUBQ SCH ×4 (09:00→22:46)
[2021-05-22] MEDS ORDERED: Vancomycin 1,000 MG, Sodium Chloride IRRigation 1,000 ML IR ONE (14:45)
[2021-05-22] MEDS ORDERED: Heparin 1,000 UNITS/500 mL 500 ML ONE ×2 (15:10→16:05)
[2021-05-22] MEDS ORDERED: *HR* FentaNYL (PF) 100 MCG/2 ML VIAL ONE (15:22)
[2021-05-22] MEDS ORDERED: *HR* Midazolam HCl 2 MG/2 ML VIAL ONE (15:22)
[2021-05-22] MEDS ORDERED: *HR* Propofol 200 MG/20 ML VIAL IVP ONE (15:22)
[2021-05-22] MEDS ORDERED: Ondansetron 4 MG/2 ML VIAL IVP PRN ×2 (15:23→22:07)
[2021-05-22] MEDS ORDERED: Lidocaine -MPF 2% 5 ML VIAL ONE (15:23)
[2021-05-22] MEDS ORDERED: Promethazine 6.25 MG in Water for inj. (sterile) 20 ML IVPB PRN (15:23)
[2021-05-22] MEDS ORDERED: *HR* OxyCODONE Immed Rel 5 MG TABLET PO PRN (15:23)
[2021-05-22] MEDS ORDERED: *HR* HYDROmorphone PF 0.5 MG/0.5 ML SYRINGE IVP PRN (15:23)
[2021-05-22] MEDS ORDERED: *HR* Rocuronium Bromide 50 MG/5 ML VIAL ONE (15:24)
[2021-05-22] MEDS ORDERED: *HR* Succinylcholine 200 MG/10 ML VIAL IVP ONE (15:24)
[2021-05-22] MEDS ORDERED: Protamine Sulfate 50 MG/5 ML VIAL IVP ONE (16:04)
[2021-05-22] MEDS ORDERED: Bupivacaine-MPF 0.25% 10 ML VIAL ONE (16:05)
[2021-05-22] MEDS ORDERED: *HR* Phenylephrine 10 MG/ML VIAL ONE (16:25)
[2021-05-22] MEDS ORDERED: Vancomycin (wt based) 1,000 MG VIAL IVPB SCH (18:00)
[2021-05-22] MEDS ORDERED: *HR* Heparin 5,000 UNIT/ML VIAL ONE (18:02)
[2021-05-22] MEDS ORDERED: Vancomycin 1,500 MG/265 ML IV.SOLN IVPB SCH (19:00)
[2021-05-22] MEDS ORDERED: Ondansetron 4 MG/2 ML VIAL ONE (19:14)
[2021-05-22] MEDS ORDERED: Sugammadex Sodium 200 MG/2 ML VIAL IV ONE (19:28)
[2021-05-22] MEDS ORDERED: 0.9 % Sodium Chloride 500 ML ONE (20:14)
[2021-05-22] MEDS ORDERED: Ipratropium/Albuterol Neb 3 ML IH PRN (22:07)
[2021-05-22] MEDS ORDERED: Melatonin 3 MG TABLET PO PRN (22:07)
[2021-05-22] MEDS ORDERED: Naloxone 0.4 MG/ML INJ IVP PRN (22:07)
[2021-05-22] MEDS ORDERED: Acetaminophen 325 MG TABLET PO PRN (22:07)
[2021-05-22] MEDS ORDERED: 0.9 % Sodium Chloride 1,000 ML IVC SCH (22:07)
[2021-05-22] MEDS ORDERED: *HR* Dextrose 50 % in Water (Syg) 50 ML SYRINGE IVP PRN (22:07)
[2021-05-22] MEDS ORDERED: Dextrose Gel 15 GM/37.5 ML TUBE PO PRN ×2 (22:07)
[2021-05-22] MEDS ORDERED: D5% in Water 1,000 ML IVC PRN (22:07)
[2021-05-22] MEDS: Insulin DETEMIR 100 UNIT/ML X5UNITS SUBQ SCH (22:47)
[2021-05-22] MEDS: Heparin 25,000UNIT/250ML 1/2NS 25,000 UNIT/250 ML IV.SOLN IVC SCH (22:57)
[2021-05-22] MEDS: *HR* HYDROcodone/Acet 5/325 mg TABLET PO PRN (23:49)
[2021-05-22] MEDS: CeFAZolin 2 GM/120 ML BAG IVPB SCH (23:49)
[2021-05-23] MEDS ORDERED: Vancomycin 1,500 MG/265 ML IV.SOLN IVPB ONE (03:00)
[2021-05-23 04:27] LABS: Basophils % 0.3 %; Eosinophils % 0.1 %; Hematocrit 33.1 % (35.3-44.9); Hemoglobin 10.6 g/dL (11.5-15.4); Immature Granulocytes % 0.8 % (0-4); Lymphocytes # 0.5 K/mcL (0.6-4.6); Lymphocytes % 6.5 %; Mean Corpuscular Hemoglobin 27.6 pg (28.0-33.3); Mean Corpuscular Volume 86.2 fL (83.0-100.0); Mean Platelet Volume 11.9 fL (9.4-12.4); Monocytes # 0.2 K/mcL (0.0-1.3); Monocytes % 2.6 %; Neutrophils # 6.5 K/mcL (1.6-8.9); Platelet Count 182 K/mcL (140-400); Red Blood Count 3.84 M/mcL (3.82-4.97); Red Cell Distribution Width 14.6 % (11.5-14.5); Segmented Neutrophils % 89.7 %; White Blood Count 7.2 K/mcL (4.3-11.1)
[2021-05-23 04:45] LABS: BUN/Creatinine Ratio 19 (6-26); Blood Urea Nitrogen 14 mg/dL (6-20); Carbon Dioxide 25 mEq/L (23-29); Chloride 110 mEq/L (98-107); Glucose 219 mg/dL (70-105); Osmolality,Calculated 289 (280-300); Potassium 4.5 mEq/L (3.5-5.1); Sodium 136 mEq/L (136-145); eGFR For African Americans > 60 (> 60); eGFR For Non-African Americans > 60 (> 60)
[2021-05-23] MEDS: CeFAZolin 2 GM/120 ML BAG IVPB SCH (06:27)
[2021-05-23] MEDS: *HR* HYDROcodone/Acet 5/325 mg TABLET PO PRN ×2 (06:27→17:12)
[2021-05-23] MEDS: Aspirin Enteric Coated 81 MG Tablet PO SCH (08:49)
[2021-05-23] MEDS: Multivit/Ca/Min/Fe/FA 1 TAB TABLET PO SCH (08:49)
[2021-05-23] MEDS: carvediloL 6.25 MG TABLET PO SCH ×2 (08:50→17:13)
[2021-05-23] MEDS: Insulin LISPRO 300 UNITS/3 ML VIAL SUBQ SCH ×4 (08:50→20:43)
[2021-05-23] MEDS: *HR* OxyCODONE Immed Rel 5 MG TABLET PO PRN ×2 (11:01→20:42)
[2021-05-23] MEDS: Insulin DETEMIR 100 UNIT/ML X5UNITS SUBQ SCH (20:44)
[2021-05-24 02:11] LABS: BUN/Creatinine Ratio 20 (6-26); Blood Urea Nitrogen 18 mg/dL (6-20); Calcium 8.1 mg/dL (8.6-10.3); Carbon Dioxide 25 mEq/L (23-29); Chloride 105 mEq/L (98-107); Glucose 215 mg/dL (70-105); Magnesium 1.6 mg/dL (1.6-2.6); Osmolality,Calculated 290 (280-300); Phosphorous 2.8 mg/dL (2.7-4.5); Potassium 3.9 mEq/L (3.5-5.1); Sodium 136 mEq/L (136-145); eGFR For African Americans > 60 (> 60); eGFR For Non-African Americans > 60 (> 60)
[2021-05-24] MEDS ORDERED: Furosemide 20 MG/2 ML VIAL IVP ONE (02:36)
[2021-05-24] MEDS: *HR* OxyCODONE Immed Rel 5 MG TABLET PO PRN ×3 (05:19→20:31)
[2021-05-24] MEDS: *HR* HYDROcodone/Acet 5/325 mg TABLET PO PRN ×2 (09:22→16:38)
[2021-05-24] MEDS: carvediloL 6.25 MG TABLET PO SCH ×2 (09:23→18:25)
[2021-05-24] MEDS: Aspirin Enteric Coated 81 MG Tablet PO SCH (09:23)
[2021-05-24] MEDS: Multivit/Ca/Min/Fe/FA 1 TAB TABLET PO SCH (09:23)
[2021-05-24] MEDS: Insulin LISPRO 300 UNITS/3 ML VIAL SUBQ SCH ×4 (09:23→22:37)
[2021-05-24] MEDS ORDERED: *HR* Heparin 5,000 UNIT/ML VIAL IVP PRN ×2 (17:34)
[2021-05-24] MEDS ORDERED: *HR* Heparin 5,000 UNIT/ML VIAL IVP ONE (17:34)
[2021-05-24 18:26] LABS: Hematocrit 32.6 % (35.3-44.9); Hemoglobin 10.6 g/dL (11.5-15.4); Mean Corpuscular HGB Conc 32.5 g/dL (31.6-35.5); Mean Corpuscular Hemoglobin 27.9 pg (28.0-33.3); Mean Corpuscular Volume 85.8 fL (83.0-100.0); Mean Platelet Volume 11.1 fL (9.4-12.4); Platelet Count 195 K/mcL (140-400); Red Cell Distribution Width 14.8 % (11.5-14.5); White Blood Count 9.1 K/mcL (4.3-11.1)
[2021-05-24 18:34] LABS: Heparin anti-factor XA UFH < 0.04 IU/mL (0.30-0.70)
[2021-05-24 18:35] LABS: INR 1.2; Prothrombin Time 13.2 Seconds (9.4-12.1)
[2021-05-24] MEDS: Heparin 25,000UNIT/250ML 1/2NS 25,000 UNIT/250 ML IV.SOLN IVC SCH (19:34)
[2021-05-24] MEDS: Insulin DETEMIR 100 UNIT/ML X5UNITS SUBQ SCH (22:51)
[2021-05-25 04:38] LABS: Hematocrit 29.8 % (35.3-44.9); Hemoglobin 9.7 g/dL (11.5-15.4); Mean Corpuscular HGB Conc 32.6 g/dL (31.6-35.5); Mean Corpuscular Hemoglobin 28.1 pg (28.0-33.3); Mean Corpuscular Volume 86.4 fL (83.0-100.0); Mean Platelet Volume 11.7 fL (9.4-12.4); Platelet Count 200 K/mcL (140-400); Red Blood Count 3.45 M/mcL (3.82-4.97); Red Cell Distribution Width 14.8 % (11.5-14.5); White Blood Count 7.4 K/mcL (4.3-11.1)
[2021-05-25 05:00] LABS: Alanine Aminotransferase 7 Units/L (7-52); Albumin 2.9 g/dL (3.5-5.7); Alkaline Phosphatase 55 Units/L (34-104); Aspartate Amino Transferase 7 Units/L (13-39); BUN/Creatinine Ratio 23 (6-26); Bilirubin,Total 0.3 mg/dL (0.3-1.0); Blood Urea Nitrogen 15 mg/dL (6-20); Calcium 8.1 mg/dL (8.6-10.3); Carbon Dioxide 25 mEq/L (23-29); Chloride 101 mEq/L (98-107); Globulin 2.8 g/dL (2.4-3.5); Glucose 187 mg/dL (70-105); Magnesium 1.9 mg/dL (1.6-2.6); Osmolality,Calculated 280 (280-300); Potassium 3.6 mEq/L (3.5-5.1); Sodium 132 mEq/L (136-145); Total Protein 5.7 g/dL (6.4-8.9); eGFR For African Americans > 60 (> 60); eGFR For Non-African Americans > 60 (> 60)
[2021-05-25] MEDS: *HR* HYDROcodone/Acet 5/325 mg TABLET PO PRN ×2 (06:17→16:08)
[2021-05-25] MEDS: carvediloL 6.25 MG TABLET PO SCH ×2 (08:26→16:09)
[2021-05-25] MEDS: Multivit/Ca/Min/Fe/FA 1 TAB TABLET PO SCH (08:26)
[2021-05-25] MEDS: Aspirin Enteric Coated 81 MG Tablet PO SCH (08:26)
[2021-05-25] MEDS: Insulin LISPRO 300 UNITS/3 ML VIAL SUBQ SCH ×2 (08:27→13:22)
[2021-05-25] MEDS: Heparin 25,000UNIT/250ML 1/2NS 25,000 UNIT/250 ML IV.SOLN IVC SCH (11:09)
[2021-05-25 11:56] VITALS: BP 153/63; PULSE 73; TEMP 98.4; O2SAT 96
== END 2021-05-25 18:00 | disposition home health service (06) | DRG 252 ==
LOC: 2NENU 20:24 → EMEROOARM 20:24 → SUATTDRO 05-14 00:46 → 2NENU 05-14 01:53 → 3ANU 05-16 17:36 → 2NNU 05-22 15:24
PROVIDERS: ADMIT Internal Medicine; ATTEND Internal Medicine

== ENCOUNTER 2022-02-10 13:37 | Inpatient (IN) ==
[2022-02-10] MEDS ORDERED: Aspirin 325 MG TABLET PO ONE (13:54)
[2022-02-10] MEDS: Nitroglycerin 0.4 MG TAB.SUBL SL SCH ×2 (14:11→18:08)
[2022-02-10 14:25] LABS: Basophils % 0.2 %; Eosinophils % 0.4 %; Hematocrit 41.4 % (35.3-44.9); Hemoglobin 13.6 g/dL (11.5-15.4); Immature Granulocytes % 0.5 % (0-4); Lymphocytes # 0.9 K/mcL (0.6-4.6); Lymphocytes % 10.3 %; Mean Corpuscular HGB Conc 32.9 g/dL (31.6-35.5); Mean Corpuscular Hemoglobin 27.5 pg (28.0-33.3); Mean Corpuscular Volume 83.8 fL (83.0-100.0); Mean Platelet Volume 11.4 fL (9.4-12.4); Monocytes # 0.4 K/mcL (0.0-1.3); Neutrophils # 6.9 K/mcL (1.6-8.9); Platelet Count 222 K/mcL (140-400); Red Blood Count 4.94 M/mcL (3.82-4.97); Segmented Neutrophils % 83.6 %; White Blood Count 8.3 K/mcL (4.3-11.1)
[2022-02-10 14:30] LABS: Prothrombin Time 11.5 Seconds (9.4-12.1)
[2022-02-10 14:51] LABS: Calcium 8.8 mg/dL (8.6-10.3); Potassium 4.8 mEq/L (3.5-5.1); Troponin I 0.04 ng/mL (< 0.04)
[2022-02-10] MEDS ORDERED: Furosemide 40 MG/4 ML VIAL IVP ONE (15:11)
[2022-02-10] MEDS: Morphine Sulfate 2 MG/ML SYRINGE IVP PRN ×2 (15:37→21:43)
[2022-02-10] MEDS ORDERED: Naloxone 0.4 MG/ML INJ IVP PRN (15:39)
[2022-02-10] MEDS ORDERED: Acetaminophen 325 MG TABLET PO PRN (15:39)
[2022-02-10] MEDS ORDERED: Ondansetron 4 MG/2 ML VIAL IVP PRN (15:39)
[2022-02-10] MEDS ORDERED: *HR* Dextrose 50 % in Water (Syg) 50 ML SYRINGE IVP PRN (17:58)
[2022-02-10] MEDS ORDERED: D5% in Water 1,000 ML IVC PRN (17:58)
[2022-02-10] MEDS ORDERED: Dextrose Gel 15 GM/37.5 ML TUBE PO PRN ×2 (17:58)
[2022-02-10] MEDS: Insulin LISPRO 300 UNITS/3 ML VIAL SUBQ SCH ×2 (18:06→21:43)
[2022-02-11 05:21] LABS: Basophils % 0.6 %; Calcium 8.8 mg/dL (8.6-10.3); Eosinophils # 0.1 K/mcL (0.0-0.6); Eosinophils % 1.2 %; Hematocrit 35.7 % (35.3-44.9); Immature Granulocytes % 0.2 % (0-4); Lymphocytes # 1.5 K/mcL (0.6-4.6); Lymphocytes % 30.4 %; Mean Corpuscular HGB Conc 33.3 g/dL (31.6-35.5); Mean Platelet Volume 11.6 fL (9.4-12.4); Monocytes # 0.4 K/mcL (0.0-1.3); Monocytes % 7.3 %; Neutrophils # 3.1 K/mcL (1.6-8.9); Platelet Count 180 K/mcL (140-400); Potassium 4.1 mEq/L (3.5-5.1); Red Blood Count 4.25 M/mcL (3.82-4.97); Segmented Neutrophils % 60.3 %; White Blood Count 5.1 K/mcL (4.3-11.1)
[2022-02-11] MEDS: *HR* Enoxaparin 40 MG/0.4 ML SYRINGE SQ SCH (06:49)
[2022-02-11 07:43] LABS: Hemoglobin 11.9 g/dL (11.5-15.4)
[2022-02-11] MEDS: Insulin LISPRO 300 UNITS/3 ML VIAL SUBQ SCH ×4 (08:43→20:44)
[2022-02-11] MEDS: Aspirin 81 MG TAB.CHEW PO SCH (12:11)
[2022-02-11] MEDS: FLUoxetine 20 MG CAPSULE PO SCH (12:11)
[2022-02-11] MEDS: *HR* Amiodarone 200 MG TABLET PO SCH (12:12)
[2022-02-11] MEDS: carvediloL 6.25 MG TABLET PO SCH ×2 (12:14→17:15)
[2022-02-11] MEDS: Furosemide 40 MG/4 ML VIAL IVP SCH (12:14)
[2022-02-11] MEDS: Pregabalin 50 MG CAPSULE PO SCH ×3 (12:27→20:41)
[2022-02-11] MEDS: Ranolazine 500 MG TAB.ER.12H PO SCH (20:31)
[2022-02-12 05:43] LABS: Basophils % 0.5 %; Eosinophils # 0.1 K/mcL (0.0-0.6); Eosinophils % 1.4 %; Hematocrit 37.4 % (35.3-44.9); Hemoglobin 12.2 g/dL (11.5-15.4); Immature Granulocytes % 0.5 % (0-4); Lymphocytes # 1.4 K/mcL (0.6-4.6); Lymphocytes % 30.9 %; Mean Corpuscular HGB Conc 32.6 g/dL (31.6-35.5); Mean Corpuscular Hemoglobin 27.8 pg (28.0-33.3); Mean Corpuscular Volume 85.2 fL (83.0-100.0); Mean Platelet Volume 11.5 fL (9.4-12.4); Monocytes # 0.3 K/mcL (0.0-1.3); Monocytes % 7.7 %; Neutrophils # 2.6 K/mcL (1.6-8.9); Platelet Count 164 K/mcL (140-400); Red Blood Count 4.39 M/mcL (3.82-4.97); Red Cell Distribution Width 12.7 % (11.5-14.5); White Blood Count 4.4 K/mcL (4.3-11.1)
[2022-02-12 06:02] LABS: Calcium 8.4 mg/dL (8.6-10.3); Magnesium 1.8 mg/dL (1.6-2.6); Potassium 3.9 mEq/L (3.5-5.1)
[2022-02-12 07:18] VITALS: TEMP 97.9
[2022-02-12] MEDS: *HR* Enoxaparin 40 MG/0.4 ML SYRINGE SQ SCH (08:48)
[2022-02-12] MEDS: Furosemide 40 MG/4 ML VIAL IVP SCH (08:49)
[2022-02-12] MEDS: carvediloL 6.25 MG TABLET PO SCH ×2 (08:50→16:38)
[2022-02-12] MEDS: Pregabalin 50 MG CAPSULE PO SCH ×2 (08:50→16:38)
[2022-02-12] MEDS: Aspirin 81 MG TAB.CHEW PO SCH (08:50)
[2022-02-12] MEDS: *HR* Amiodarone 200 MG TABLET PO SCH (08:51)
[2022-02-12] MEDS: Ranolazine 500 MG TAB.ER.12H PO SCH (08:52)
[2022-02-12] MEDS: FLUoxetine 20 MG CAPSULE PO SCH (08:52)
[2022-02-12] MEDS: Insulin LISPRO 300 UNITS/3 ML VIAL SUBQ SCH ×3 (08:57→16:38)
[2022-02-12] MEDS ORDERED: Spironolactone 25 MG TABLET PO SCH (09:00)
[2022-02-12 15:48] VITALS: BP 164/69; PULSE 81; O2SAT 100
[2022-02-13] MEDS ORDERED: Furosemide 20 MG TABLET PO SCH (09:00)
== END 2022-02-12 19:01 | disposition home or self-care (01) | DRG 291 ==
LOC: 2ANU 13:37 → EMEROOARM 13:37 → SUATTDRO 15:53 → 2ANU 16:59
PROVIDERS: ADMIT Internal Medicine; ATTEND Pharmacist